=== PATIENT | female | born 1955 | race Caucasian/White ===

== ENCOUNTER 2024-09-22 18:28 | Emergency (ER) | payer MEDICARE, MEDICAID, SELFPAY ==
[2024-09-22 19:01] VITALS: BP 103/51; PULSE 77; RESP 20; O2SAT 97
--- NOTE | 2024-09-22 19:10 | XR_ITS ---
Examination: AP chest single view Technique: AP portable upright chest single view Exam date and time: September 22, 20241958 hrs. Indications: Onset vomiting today. Findings: Moderate elevation left hemidiaphragm Mild prominence cardiac contour Mild vascular congestion Atelectasis versus mild pneumonia left base Impression: Atelectasis versus mild pneumonia left base, clinical correlation advised
[2024-09-22] MEDS: SODIUM CHLORIDE 0.9% 250 ML 250 ML 999 ML IV (19:36)
[2024-09-22] MEDS: ONDANSETRON INJ 2 MG/ML INJ 2 ML 4 MG IV (19:37)
[2024-09-22 20:12] LABS: Basophils % (Auto) 0 % (0-2.5); Eosinophils # (Auto) 0.2 Thou/mm3 (0.0-0.5); Eosinophils % (Auto) 2 % (0-10); Hemoglobin 11.9 g/dL (12.0-16.0); Immature Granulocytes % (Auto) 1 % (0-0); Immature Granulocytes Auto 0.04 Thou/mm3 (0.00-0.00); Lymphocytes # (Auto) 1.5 Thou/mm3 (1.0-4.8); Lymphocytes % (Auto) 18 % (10-50); Mean Corpuscular HGB Conc 32.2 g/dl (31.0-37.0); Mean Corpuscular Hemoglobin 29.9 pg (25.0-35.0); Mean Corpuscular Volume 93 fL (80-100); Monocytes # (Auto) 0.8 Thou/mm3 (0.0-0.8); Monocytes % (Auto) 10 % (0-12); Neutrophils # (Auto) 5.6 Thou/mm3 (1.8-7.7); Neutrophils % (Auto) 69 % (37-80); Nucleated Red Blood Cell % 0 /100 WBC (0); RDW Standard Deviation 53.7 fL (36.4-46.3); Red Blood Count 3.98 Miln/mm3 (4.00-5.20); White Blood Count 8.1 Thou/mm3 (3.6-11.0)
[2024-09-22 20:16] LABS: Platelet Count 53 Thou/mm3 (140-440)
[2024-09-22 20:18] VITALS: BMI 29.2
[2024-09-22 20:32] LABS: Alanine Aminotransferase 26 U/L (10-49); Albumin, Serum 4.5 gm/dL (3.4-4.8); Albumin/Globulin Ratio 1.2 (1.2-2.2); Alkaline Phosphatase 180 U/L (46-116); Anion Gap 3 (7-16); Aspartate Amino Transferase 61 U/L (0-34); BUN/Creatinine Ratio 36 Ratio (12-20); Bilirubin,Total 0.2 mg/dL (0.3-1.2); Blood Urea Nitrogen 18 mg/dL (9-23); Calcium 9.5 mg/dL (8.3-10.6); Calcium (Corrected) 9.5 mg/dL (8.5-10.1); Carbon Dioxide 33.8 mMol/L (20.0-31.0); Chloride 100 mMol/L (98-107); Creatinine (Component) 0.5 mg/dL (0.6-1.3); Estimated Creatinine Clearance 88.8 mL/min (>60); Globulin 3.9 gm/dL (2.3-3.5); Glucose 100 mg/dL (74-106); Osmolality,Calculated 275 (275-295); Potassium 4.2 mMol/L (3.4-5.1); Sodium 137 mMol/L (136-145); Total Protein 8.4 gm/dL (5.7-8.2); Troponin I 0.023 ng/mL (0.0-0.045); eGFR > 60 See Note
[2024-09-22 20:44] LABS: Slide Review Platelets confirmed
[2024-09-22 20:56] LABS: B-Type Natriuretic Peptide 45 pg/mL (0-100)
[2024-09-22 21:23] LABS: Collection Type, Urine Voided
[2024-09-22 21:26] VITALS: BP 97/55; PULSE 76; RESP 17; TEMP 36.8; O2SAT 100
[2024-09-22 21:54] LABS: Bacteria,Urine Rare; Bilirubin,Urine Negative (Negative); Blood,Urine Negative (Negative); Clarity,Urine Turbid (Clear/Hazy); Color,Urine Lt-Yellow (Lt Yel-Yel); Glucose, Urine Negative (Negative); Ketones,Urine Negative (Negative); Leukocyte Esterase,Urine Positive (Negative); Nitrite,Urine Positive (Negative); PH,Urine 5.5 (5.0-7.0); Protein,Urine Negative (Neg - Trace); RBC,Urine 1 /hpf (0-3); Specific Gravity,Urine 1.007 (1.001-1.035); Squamous Epithelial Cell,Urine < 1 /hpf (0-5); Urobilinogen,Urine Negative mg/dL (0.0-1.0); WBC,Urine 6 /hpf (0-5)
[2024-09-22 23:37] VITALS: BP 105/70; PULSE 80; RESP 18; O2SAT 100
--- NOTE | 2024-09-22 23:44 | EDNOTE_ITS ---
ED Seizures RME/HPI General Chief Complaint: Seizure Stated Complaint: NAUSEA AND VOMITING Time Seen by Provider: 09/22/24 18:57 Arrival date/time: 09/22/24 18:28 Limitations: no limitations RME / HPI RME / HPI Narrative: Dr. Salazar's Main ED Evaluation: 69-year-old female with known seizure disorder BIBA from [facility] coming in with nausea and possible seizure history taken by EMS. Per EMS, patient had a seizure that lasted 1 minute. EMS endorsed the patient having N/V and administered Zofran en route. No further history reported at this time. No known allergies. Related Data Home Medications ?Medication ?Instructions ?Recorded ?Confirmed alendronate 70 mg tablet 70 mg PO QWEEK 06/11/20 07/21/22 ascorbic acid (vitamin C) 500 mg 500 mg PO QDAY 06/11/20 07/21/22 tablet (Vitamin C) docusate sodium 250 mg capsule 250 mg PO BID 06/11/20 07/21/22 furosemide 40 mg tablet 40 mg PO QDAY 06/11/20 07/21/22 potassium chloride 10 mEq 10 meq PO BID 06/11/20 07/21/22 tablet,extended release hydroxyzine HCl 50 mg tablet 50 mg PO QPM 03/10/21 07/21/22 loratadine 10 mg tablet 10 mg PO QDAY 03/10/21 07/21/22 multivitamin with iron-mineral 1 tab PO QDAY 03/10/21 07/21/22 pantoprazole 40 mg tablet,delayed 40 mg PO QDAY 03/10/21 07/21/22 release (Protonix) acetaminophen 325 mg tablet 650 mg PO Q6H PRN Pain 08/21/21 07/21/22 magnesium hydroxide 400 mg/5 mL 30 ml PO Q72H 08/21/21 07/21/22 oral suspension (Milk of Magnesia) primidone 50 mg tablet 200 mg PO BID 08/21/21 07/21/22 levothyroxine 300 mcg tablet 300 mcg PO QDAY 07/21/22 07/21/22 Previous Rx's ?Medication ?Instructions ?Recorded apixaban 5 mg tablet (Eliquis) 10 mg (2 x 5 mg) PO BID #28 tabs 07/17/22 Allergies Allergy/AdvReac Type Severity Reaction Status Date / Time No Known Allergies Allergy Verified 06/12/22 11:15 Review of Systems Review of Systems Systems Reviewed: All systems reviewed, normal except as documented Past Medical History Past Medical History NEUROLOGIC: Positive Neurological Disorders, Seizures and Traumatic Brain Injury CARDIAC: Positive Myocardial Infarction and Hypertension; Negative Cardiac Disorders or Congestive Heart Failure RESPIRATORY: Positive Pneumonia; Negative Chronic Obstructive Pulmonary Disease (COPD) or Asthma GASTROINTESTINAL: Positive Gastrointestinal Disorders, Gastrointestinal Bleed, Hiatal Hernia and Gastroesophageal Reflux Disease GENITOURINARY: Negative Genitourinary Disorders or Renal Disease MUSCULOSKELETAL: Positive Musculoskeletal Disorders and Osteoporosis ENDOCRINE: Positive Endocrine Disorders and Hypothyroidism; Negative Diabetes Mellitus Type 1 or Diabetes Mellitus Type 2 HEMATOLOGIC: Positive Anemia; Negative Blood Disorders or Sickle Cell Disease OTHER HISTORY: Negative Shingles, Falls, Blood Transfusions or Blood Transfusion Reaction Social History SMOKING STATUS: Never smoker ED Exam Narrative Physical exam: Patient sitting on the stretcher, repeating her words at baseline. General Limitations: Present no limitations General appearance: Present alert; Absent appears intoxicated, anxious, lethargic or obtunded Head Head exam: Present other (Losing much of her hair) Eye Eye exam: Present normal appearance; Absent conjunctival injection ENT ENT exam: Present normal exam, normal oropharynx and mucous membranes moist Neck Neck exam: Present normal inspection, full ROM and trachea midline Chest Chest inspection: Present normal inspection and symmetric chest wall rise Respiratory Respiratory exam: Present normal lung sounds bilaterally; Absent respiratory distress or wheezes Cardiovascular Cardiovascular exam: Present regular rate, normal rhythm and normal heart sounds Abdominal Exam Abdominal exam: Present soft and normal bowel sounds; Absent distention Extremities Exam Extremities exam: Present other (Bilateral upper extremity contractures of the hand.); Absent pedal edema Back Exam Back exam: Present normal inspection and full ROM Neurological Exam Neurological exam: Present other (At baseline) Psychiatric Psychiatric exam: Present normal affect and normal mood Skin Skin exam: Present warm and dry; Absent rash Course Course Course Narrative: CXR is ordered to r/o aspiration pneumonia. Quality Measures none Orders Category Date Time Status IV [Insert IV] STAT Care 09/22/24 19:[address] head/brain wo con Stat Exams 09/22/24 23:45 Taken CXRP [XR chest 1V portable] Stat Exams 09/22/24 19:10 Completed BNP [B-Type Natriuretic Peptide] Stat Lab 09/22/24 19:47 Completed CBC Stat Lab 09/22/24 19:47 Completed CMP [Comprehensive Metabolic Panel] Stat Lab 09/22/24 19:47 Completed Troponin I Stat Lab 09/22/24 19:47 Completed Urinalysis Stat Lab 09/22/24 21:15 Completed Ondansetron Inj [Zofran Inj] Med 09/22/24 19:29 Discontinued 4 mg IV X1 ONE Sodium Chloride 0.9% 250 ml [Ns] 250 ml Med 09/22/24 19:30 Discontinued IV 999 mls/hr cefTRIAXone [Rocephin] 1,000 mg Med 09/23/24 02:36 Active Sodium Chloride 0.9% (P) [Ns 0.9% (P)] 50 ml IV X1 Vital Signs Vital signs: Vital Signs Pulse Rate 77 09/22/24 19:01 Respiratory Rate 20 09/22/24 19:01 Blood Pressure 103/51 L 09/22/24 19:01 Pulse Oximetry (%) 97 09/22/24 19:01 Oxygen Delivery Method Nasal Cannula 09/22/24 19:01 Oxygen Flow Rate 6 09/22/24 19:01 Seizure MDM Narrative MDM Narrative:: Differential diagnosis includes electrolyte abnormality, bleed, UTI, pneumonia, dehydration. Patient is tolerating p.o. in emergency department. Urine shows that she has UTI and she is treated with ceftriaxone. At this time the patient is not febrile we will discharge patient home. Patient data External records reviewed:: [facility] previous records (Per chart review, patient was seen here on 01/20/23 for a choking episode.) Clinical information provided by:: EMS Social determinants that could affect healthcare access:: none Patient has the following chronic illnesses:: TBI, seizures, GERD, HTN, hypothyroidism How is presenting disease/condition affected by chronic disease/condition?: caused by Evaluation data The following diagnostics were reviewed and interpreted by me:: lab results and radiology exam(s) Lab and/or radiology exams considered but not ordered:: none Interpretation Summary: CBC is normal, AST and Alkaline Phosphatase are slightly elevated, troponin is normal, UA shows positive nitrites, positive leukocyte esterase, and rare bacteria, according to my interpretation. ------ I have personally reviewed the radiology data and agree with the radiologist's interpretation below: [facility] Report Signed Patient: TANIA HALL. Record#: [id number] Birthdate: 1955 Age/Sex: 69 / F Location: [facility] Attending Dr: Ordering Physician: Juli Liang MD Date of Service: 09/22/24 Procedure(s): XR chest 1V portable Accession Number(s): [id number] cc: Gabe Almeida MD; Juli Liang MD~ Examination: AP chest single view Technique: AP portable upright chest single view Exam date and time: September 22, 20241958 hrs. Indications: Onset vomiting today. Findings: Moderate elevation left hemidiaphragm Mild prominence cardiac contour Mild vascular congestion Atelectasis versus mild pneumonia left base Impression: Atelectasis versus mild pneumonia left base, clinical correlation advised Dictated By: Gabe Almeida MD Signed By: <Electronically signed by Gabe Almeida MD in OV> 09/22/242020 ------ [facility] Preliminary Report Draft Patient: TANIA HALL Record#: [id number] Birthdate: 1955 Age/Sex: 69 / F Location: [facility] Attending Dr: Ordering Physician: Date of Service: Procedure(s): Accession Number(s): cc: ~ CT scan of the head without intravenous contrast (axial sections with sagittal and coronal reformats). September 23, 2024 0112 hours Clinical History: 69-year-old with history of seizure disorder. Comparison: Compared with the prior study dated August 23, 2021 Findings: There is no evidence of intracranial hemorrhage, mass effect or midline shift. There are mild periventricular white matter hypodensities, suggestive of chronic small vessel ischemia. There is prominence of the ventricles, sulci and basal cisterns, indicating moderate volume loss. There is atheromatous calcification of the intracranial arteries. There are stable post-surgical changes of the left parietal region. The calvarium otherwise is intact. The mastoid air cells and the visualized paranasal sinuses are clear. Impression: No evidence of intracranial hemorrhage, midline shift or calvarial fracture. Chronic small vessel ischemia and mild volume loss. No significant interval change. Other findings as described above. Report Electronically Signed By: Lam Delgadillo 09/23/2024 2:30:01 AM [EST] Medications / Prescriptions Medications or Prescriptions considered but not ordered:: none Medication administrations:: Medication Administration History Ceftriaxone Sodium 1,000 mg/ (Sodium Chloride) 50 mls @ 100 mls/hr IV X1 ONE Stop: 09/23/24 03:05 Last Admin: 09/23/24 02:45 Dose: 100 mls/hr Documented By: RACHEL Discontinued Medications Sodium Chloride (Ns) 250 mls @ 999 mls/hr IV .Q16M ONE Stop: 09/22/24 19:45 Last Infusion: 09/22/24 20:18 Dose: Infused Documented By: Admin: 09/22/24 19:36 Dose: 999 mls/hr Documented By: RACHEL Ondansetron HCl (Ondansetron Inj 2 Mg/Ml Inj 2 Ml) 4 mg IV X1 ONE; Protocol Stop: 09/22/24 19:30 Last Admin: 09/22/24 19:37 Dose: 4 mg Documented By: RACHEL see above Consultations Consultation(s) initiated? (list below): No Diagnosis Seizure Differential Diagnosis: other (electrolyte abnormality, ICH, UTI, pneumonia, dehydration) Most likely diagnosis given after review of the tests above:: see below Admission Indicated Admission indicated?: not indicated Admission Request Was there a request for admission?: No Disposition Plan Disposition Plan: Discharge Discharge Attestation Discharge Attestation: The patient and all family members were given an opportunity to ask questions and understood the discharge instructions. Discharge instructions specifically effects, indications for sooner follow up or return to the emergency department, and the expected course of current diagnosis. Patient condition: Stable Discharge Plan Plan Patient Disposition: HOME (Self Care) Patient condition on transfer: Stable Prescriptions/Referrals Prescriptions/Med Rec: No Action primidone 50 mg tablet 200 mg PO BID acetaminophen 325 mg Tablet 650 mg PO Q6H PRN (Reason: Pain) Rx Instructions: for mild pain magnesium hydroxide [Milk of Magnesia] 400 mg/5 mL Suspension 30 ml PO Q72H Rx Instructions: for constipation furosemide 40 mg Tablet 40 mg PO QDAY alendronate 70 mg Tablet 70 mg PO QWEEK Rx Instructions: saturday potassium chloride 10 mEq Tablet Extended Release 10 meq PO BID ascorbic acid (vitamin C) [Vitamin C] 500 mg Tablet 500 mg PO QDAY docusate sodium 250 mg Capsule 250 mg PO BID Rx Instructions: for constipation hydroxyzine HCl 50 mg Tablet 50 mg PO QPM loratadine 10 mg Tablet 10 mg PO QDAY Rx Instructions: for allergies multivitamin with iron-mineral Tablet 1 tab PO QDAY pantoprazole [Protonix] 40 mg Tablet,Delayed Release (Dr/Ec) 40 mg PO QDAY levothyroxine 300 mcg Tablet 300 mcg PO QDAY Eliquis 5 mg tablet 10 mg PO BID Qty: 28 0RF Referrals: Tony Harding MD [Primary Care Provider] - In 1 week Problem List Clinical Impression: Acute UTI, History of seizure disorder Patient/Caregiver Discharge Instructions Education Materials: ED CYSTITIS Female Adult Additional Instructions: Please continue the medications as prescribed by your doctor. Please return to the emergency department for any worsening symptoms, or any other concerns. Print Language: Yakut Stand Alone Forms: Rosalia Award Info., Patient Portal Info Letter
--- NOTE | 2024-09-22 23:45 | XR_ITS ---
Examination: CT brain head without contrast. 2-D sagittal coronal reconstructions Date and time of exam:September 23, 2024 0112 hrs. Indications: Onset lethargy altered mental status today CTDI: vol (mGy):45.71 DLP: (mGycm):909 Technique: Multiple CT axial sections of the brain have been obtained, 5 mm slice thickness. Contrast has not been administered. 2-D sagittal, coronal reconstructions have been obtained Low dose protocols were performed. One or more of the following dose reduction techniques were used; automated exposure control, adjustment of the mA and/or KV according to patient size, use of iterative reconstruction technique. Findings: No significant ventricular enlargement. Intra-axial or extra-axial hemorrhage density is not seen. No mass effect or midline shift Basal cisterns are not remarkable. Fourth ventricle is midline. Left craniotomy defects Impression: Negative for acute hemorrhage, mass effect or midline shift His symptoms persist, consider brain MRI follow-up
[2024-09-23 01:00] VITALS: BP 113/78; PULSE 72; RESP 22; TEMP 37.1; O2SAT 100
--- NOTE | 2024-09-23 02:31 | PRELIM_ITS ---
CT scan of the head without intravenous contrast (axial sections with sagittal and coronal reformats) . September 23, 2024 0112 hoursClinical History: 69-year-old with history of seizure disorder.Comparis on: Compared with the prior study dated August 23, 2021Findings:There is no evidence of intracranial hemorrhage, mass effect or midline shift. There are mild periventricular white matter hypodensities, suggestive of chronic small vessel ischemia. There is prominence of the ventricles, sulci and basal cisterns, indicating moderate volume loss. There is atheromatous calcification of the intracranial ar teries. There are stable post-surgical changes of the left parietal region. The calvarium otherwise i s intact. The mastoid air cells and the visualized paranasal sinuses are clear.Impression:No evidence of intracranial hemorrhage, midline shift or calvarial fracture. Chronic small vessel ischemia and m ild volume loss. No significant interval change. Other findings as described above. Report Alexandria simmons Signed By: Lam Delgadillo 09/23/2024 2:30:01 AM [EST]
[2024-09-23] MEDS: cefTRIAXone 1,000 MG in SODIUM CHLORIDE 0.9% (P) 50 ML 100 MG IV (02:45)
[2024-09-23 03:51] VITALS: BP 110/67; PULSE 78; RESP 18; TEMP 36.7; O2SAT 98
== END 2024-09-23 03:52 | disposition home or self-care (01) ==
PROVIDERS: Emergency Provider Emergency Medicine; PCP Family Medicine
DX: N39.0 Urinary tract infection, site not specified (principal); E03.9 Hypothyroidism, unspecified; K21.9 Gastro-esophageal reflux disease without esophagitis; I10 Essential (primary) hypertension; R56.9 Unspecified convulsions
CPT/HCPCS: 36415; 70450; 71045; 80053; 81001; 83880; 84484; 85025; 96361; 96365; 96375; 99284; J0696; J2405; J7050

== ENCOUNTER 2025-03-28 06:33 | Emergency (ER) | payer MEDICARE, MEDICAID, SELFPAY ==
[2025-03-28 06:36] VITALS: BP 132/79; PULSE 78; RESP 18; TEMP 36.9; O2SAT 96
[2025-03-28 06:54] VITALS: PULSE 72; RESP 18; O2SAT 97
--- NOTE | 2025-03-28 07:19 | EKG_ITS ---
[facility] Test Date: 2025-03-28 Pat Name: TANIA HALL Department: Room: - Gender: Female Administrative Support Associate: : 1955 Requested By: Gustavo Contreras Order Number: [id number] Reading MD: Gustavo Contreras Measurements Intervals [place] Rate: 77 P: ND: QRS: 73 QRSD: 78 T: 60 QT: 353 QTc: 401 Interpretive Statements ATRIAL FIBRILLATION NONSPECIFIC T-WAVE ABNORMALITY ABNORMAL RHYTHM ECG Compared to ECG 07/20/2022 16:16:08 Sinus rhythm no longer present T-wave abnormality still present /store/S0/[id number].pdf
--- NOTE | 2025-03-28 07:20 | PD.EDAMS ---
Altered Mental Status RME/HPI General Chief Complaint: Altered Mental Status Stated Complaint: AMS Time Seen by Provider: 03/28/25 07:08 Arrival date/time: 03/28/25 06:33 Limitations: no limitations RME / HPI RME / HPI narrative: 69 year old female with history of developmental delay, seizures, hypertension, hypothyroidism, gastritis, anemia, and left hip fracture s/p tronchateric fixation and implant of the left hip (2021) presents to the ED BIBA from [facility] for evaluation of altered mental status. Per medics, [facility] staff reported patient was found to be confused and altered this morning during morning rounds. State when they arrived patient was GCS of 13. However, noted en route mentation had improved and on arrival to ED is GCS of 14, which is her baseline. Unclear whether patient had a seizure and was postictal. Related Data Home Medications ?Medication ?Instructions ?Recorded ?Confirmed alendronate 70 mg tablet 70 mg PO QWEEK 06/11/20 07/21/22 ascorbic acid (vitamin C) 500 mg 500 mg PO QDAY 06/11/20 07/21/22 tablet (Vitamin C) docusate sodium 250 mg capsule 250 mg PO BID 06/11/20 07/21/22 furosemide 40 mg tablet 40 mg PO QDAY 06/11/20 07/21/22 potassium chloride 10 mEq 10 meq PO BID 06/11/20 07/21/22 tablet,extended release hydroxyzine HCl 50 mg tablet 50 mg PO QPM 03/10/21 07/21/22 loratadine 10 mg tablet 10 mg PO QDAY 03/10/21 07/21/22 multivitamin with iron-mineral 1 tab PO QDAY 03/10/21 07/21/22 pantoprazole 40 mg tablet,delayed 40 mg PO QDAY 03/10/21 07/21/22 release (Protonix) acetaminophen 325 mg tablet 650 mg PO Q6H PRN Pain 08/21/21 07/21/22 magnesium hydroxide 400 mg/5 mL 30 ml PO Q72H 08/21/21 07/21/22 oral suspension (Milk of Magnesia) primidone 50 mg tablet 200 mg PO BID 08/21/21 07/21/22 levothyroxine 300 mcg tablet 300 mcg PO QDAY 07/21/22 07/21/22 Previous Rx's ?Medication ?Instructions ?Recorded apixaban 5 mg tablet (Eliquis) 10 mg (2 x 5 mg) PO BID #28 tabs 07/17/22 levofloxacin 500 mg tablet 500 mg PO Q24H 7 days #10 tabs 03/28/25 Allergies Allergy/AdvReac Type Severity Reaction Status Date / Time No Known Allergies Allergy Verified 03/28/25 06:53 Review of Systems Review of Systems ROS Unobtainable: unobtainable due to mental status Past Medical History Past Medical History NEUROLOGIC: Positive Neurological Disorders, Seizures and Traumatic Brain Injury CARDIAC: Positive Myocardial Infarction and Hypertension RESPIRATORY: Positive Pneumonia GASTROINTESTINAL: Positive Gastrointestinal Disorders, Gastrointestinal Bleed, Hiatal Hernia and Gastroesophageal Reflux Disease MUSCULOSKELETAL: Positive Musculoskeletal Disorders and Osteoporosis ENDOCRINE: Positive Endocrine Disorders and Hypothyroidism HEMATOLOGIC: Positive Anemia Social History SMOKING STATUS: Never smoker ED Exam General Limitations: Present no limitations General appearance: Present alert and other (Nonverbal) Head Head exam: Present atraumatic and normocephalic Eye Eye exam: Present normal appearance, PERRL and EOMI ENT ENT exam: Present normal exam, normal oropharynx and mucous membranes moist Neck Neck exam: Present normal inspection, full ROM and trachea midline Chest Chest inspection: Present normal inspection and symmetric chest wall rise Respiratory Respiratory exam: Present normal lung sounds bilaterally Cardiovascular Cardiovascular exam: Present regular rate, normal rhythm and normal heart sounds Abdominal Exam Abdominal exam: Present soft and normal bowel sounds Extremities Exam Extremities exam: Present normal inspection and full ROM; Absent pedal edema Back Exam Back exam: Present normal inspection and full ROM Neurological Exam Neurological exam: Present other (Awake, alert, oriented x1, no facial droop, inattention, moved all extremities, not able to assess further due to nonresponsiveness ) Psychiatric Psychiatric exam: Present normal affect and normal mood Skin Skin exam: Present warm, dry, intact and normal color Course Quality Measures none Orders Category Date Time Status Bar Tender NOW Care 03/28/25 07:19 Active Continuous Pulse Oximetry NOW Care 03/28/25 07:19 Completed EKG (ED ONLY) *Do not use* NOW Care 03/28/25 07:19 Completed Insert IV NOW Care 03/28/25 07:[address] head/brain wo con Stat Exams 03/28/25 07:26 Completed EKG (ED Only) Stat Exams 03/28/25 07:19 Ordered XR chest 1V portable Stat Exams 03/28/25 07:19 Completed CBC Stat Lab 03/28/25 07:52 Completed Comprehensive Metabolic Panel Stat Lab 03/28/25 07:52 Completed Lactic Acid [Lactate (Lactic Acid)] Stat Lab 03/28/25 07:52 Completed Partial Thromboplastin Time Stat Lab 03/28/25 07:52 Completed Prothrombin Time with INR Stat Lab 03/28/25 07:52 Completed Troponin I Stat Lab 03/28/25 07:52 Completed Urinalysis Routine Lab 03/28/25 10:50 Received Levofloxacin/D5w 500 mg Ivpb [Levaquin Ivpb] Med 03/28/25 11:19 Active 500 mg in 100 ml IV X1 Sodium Chloride 0.9% 1000 ml [Ns] 1,000 ml Med 03/28/25 07:19 Discontinued IV 250 mls/hr Oxygen Delivery NOW RT 03/28/25 07:19 Active Vital Signs Vital signs: Vital Signs Temperature 98.5 F 03/28/25 06:36 Pulse Rate 78 03/28/25 06:36 Respiratory Rate 18 03/28/25 06:36 Blood Pressure 132/79 H 03/28/25 06:36 Pulse Oximetry (%) 96 03/28/25 06:36 Oxygen Delivery Method Nasal Cannula 03/28/25 06:36 Oxygen Flow Rate 2 03/28/25 06:36 Pulse ox is 96% on 2L nasal cannula which is adequate. Altered Mental Status MDM Narrative MDM Narrative:: I, Jennifer Pacheco, am scribing for and in the presence of Dr. Diggs. The patient presented to the ED for confusion and altered mental status. At this time I don't think the patient is having an acute stroke and presentation is most likely seizures vs encephalopathy (infectious or metabolic). Patient data External records reviewed:: [facility] previous records (I reviewed admission from 07/18/2022 through 07/23/2022), EMS form and [facility] records (I reviewed pmhx and medication list from [facility] ) Clinical information provided by:: EMS Social determinants that could affect healthcare access:: housing (SNF resident ) Patient has the following chronic illnesses:: Developmental delay, seizures, hypertension, hypothyroidism, gastritis, anemia, and left hip fracture s/p tronchateric fixation and implant of the left hip (2021) How is presenting disease/condition affected by chronic disease/condition?: exacerbated by Evaluation data The following diagnostics were reviewed and interpreted by me:: lab results, radiology exam(s) and EKG tracing(s) (EKG 03/28/2025 @ 08:09 AM. Sinus rhythm with short ID interval, rate 73, ID 116ms, QRS 81ms, QT/QTc 368/394ms, P-R-T 36-74-90. ) Lab and/or radiology exams considered but not ordered:: None Interpretation Summary: Ordering Physician: Gustavo Diggs MD Date of Service: 03/28/25 Procedure(s): XR chest 1V portable Accession Number(s): [id number] cc: Gustavo Diggs MD; Gabe Almeida MD~ Examination: AP chest single view TECHNIQUE: AP portable semiupright chest single view Date and time: March,, 0738 hours INDICATIONS: Coughing today. FINDINGS: Moderate elevation left hemidiaphragm Atelectasis and/or pneumonia left base Right lung clear Ectatic thoracic aorta IMPRESSION: Atelectasis and/or pneumonia left base, clinical correlation is advised Dictated By: Gabe Almeida MD Signed By: <Electronically signed by Gabe Almeida MD in OV>03/28/25 0807 Ordering Physician: Gustavo Diggs MD Date of Service: 03/28/25 Procedure(s): CT head/brain wo con Accession Number(s): [id number] cc: Gustavo Diggs MD; Gabe Almeida MD; Tony Harding MD~ Examination: CT brain head without contrast. 2-D sagittal coronal reconstructions Date and time of exam:March 28, 2025, 0841 hrs. Indications: Altered mental status today CTDI: vol (mGy):46.5 DLP: (mGycm):912 Technique: Multiple CT axial sections of the brain have been obtained, 5 mm slice thickness. Contrast has not been administered. 2-D sagittal, coronal reconstructions have been obtained Low dose protocols were performed. One or more of the following dose reduction techniques were used; automated exposure control, adjustment of the mA and/or KV according to patient size, use of iterative reconstruction technique. Findings: No significant ventricular enlargement. Intra-axial or extra-axial hemorrhage density is not seen. No mass effect or midline shift Basal cisterns are not remarkable. Fourth ventricle is midline. Left craniotomy defects Impression: Negative for acute hemorrhage, mass effect or midline shift Advise clinical correlation and follow-up accordingly Dictated By: Gabe Almeida MD Signed By: <Electronically signed by Gabe Almeida MD in OV>03/28/25 09 Medications / Prescriptions Medications or Prescriptions considered but not ordered:: None Medication administrations:: Medication Administration History Levofloxacin/Dextrose (Levaquin Ivpb) 500 mg in 100 mls @ 100 mls/hr IV X1 ONE Stop: 03/28/25 12:18 Last Admin: 03/28/25 11:30 Dose: 100 mls/hr Documented By: DO Discontinued Medications Sodium Chloride (Ns) 1,000 mls @ 250 mls/hr IV .Q4H ONE Stop: 03/28/25 11:18 Last Admin: 03/28/25 09:26 Dose: 250 mls/hr Documented By: DO See above Consultations Consultation(s) initiated? (list below): No Diagnosis Differential diagnosis altered mental status: altered mental status, hypoglycemia, subarachnoid hemorrhage, sepsis and other (Seizure, postictal phase ) Most likely diagnosis given after review of the tests above:: Atelectasis, left lung base AMS Hypernatremia Admission Indicated Admission indicated?: not indicated Admission Request Was there a request for admission?: No Disposition Plan Disposition Plan: Discharge (to SNF ) Discharge Attestation Discharge Attestation: The patient and all family members were given an opportunity to ask questions and understood the discharge instructions. Discharge instructions specifically effects, indications for sooner follow up or return to the emergency department, and the expected course of current diagnosis. Patient condition: Stable Discharge Plan Plan Patient Disposition: Xfer Skilled Nsg Fac (SNF) Prescriptions/Referrals Prescriptions/Med Rec: New levofloxacin 500 mg tablet 500 mg PO Q24H 7 Days Qty: 10 0RF No Action primidone 50 mg tablet 200 mg PO BID acetaminophen 325 mg Tablet 650 mg PO Q6H PRN (Reason: Pain) Rx Instructions: for mild pain magnesium hydroxide [Milk of Magnesia] 400 mg/5 mL Suspension 30 ml PO Q72H Rx Instructions: for constipation furosemide 40 mg Tablet 40 mg PO QDAY alendronate 70 mg Tablet 70 mg PO QWEEK Rx Instructions: saturday potassium chloride 10 mEq Tablet Extended Release 10 meq PO BID ascorbic acid (vitamin C) [Vitamin C] 500 mg Tablet 500 mg PO QDAY docusate sodium 250 mg Capsule 250 mg PO BID Rx Instructions: for constipation hydroxyzine HCl 50 mg Tablet 50 mg PO QPM loratadine 10 mg Tablet 10 mg PO QDAY Rx Instructions: for allergies multivitamin with iron-mineral Tablet 1 tab PO QDAY pantoprazole [Protonix] 40 mg Tablet,Delayed Release (Dr/Ec) 40 mg PO QDAY levothyroxine 300 mcg Tablet 300 mcg PO QDAY Eliquis 5 mg tablet 10 mg PO BID Qty: 28 0RF Referrals: Tony Harding MD [Primary Care Provider] - In 1 week Problem List Clinical Impression: Atelectasis of left lung, AMS (altered mental status), Hypernatremia Patient/Caregiver Discharge Instructions Education Materials: Hypernatremia Dc, ED Atelectasis, ED Dehydration (Adult) Additional Instructions: I encourage you drink more fluids. Follow-up with your primary care doctor in 3 to 5 days for recheck. You can return to the emergency department sooner if symptoms worsen or if you notice any new, concerning issues. Print Language: Tajik Stand Alone Forms: [facility] Award Info., Patient Portal Info Letter
--- NOTE | 2025-03-28 07:26 | XR_ITS ---
Examination: CT brain head without contrast. 2-D sagittal coronal reconstructions Date and time of exam:March 28, 2025, 0841 hrs. Indications: Altered mental status today CTDI: vol (mGy):46.5 DLP: (mGycm):912 Technique: Multiple CT axial sections of the brain have been obtained, 5 mm slice thickness. Contrast has not been administered. 2-D sagittal, coronal reconstructions have been obtained Low dose protocols were performed. One or more of the following dose reduction techniques were used; automated exposure control, adjustment of the mA and/or KV according to patient size, use of iterative reconstruction technique. Findings: No significant ventricular enlargement. Intra-axial or extra-axial hemorrhage density is not seen. No mass effect or midline shift Basal cisterns are not remarkable. Fourth ventricle is midline. Left craniotomy defects Impression: Negative for acute hemorrhage, mass effect or midline shift Advise clinical correlation and follow-up accordingly
[2025-03-28 07:30] VITALS: PULSE 72; PULSE 75; O2SAT 99
--- NOTE | 2025-03-28 08:37 | PC.NURSE ---
Patient KEMAR from [facility]. Patient's sister Abril called to get update on patient . Per sister patient is profoundly developmentally delayed . Per sister she responds but is normally difficult to understand at baseline; patient is wheelchair/bedbound normally. Informed sister that patient just got back to room from CT scan. Patient has had labs drawn and waiting for all results for better update. No further questions.
[2025-03-28 08:47] LABS: Basophils % (Auto) 1 % (0-2.5); Eosinophils # (Auto) 0.1 Thou/mm3 (0.0-0.5); Eosinophils % (Auto) 1 % (0-10); Hematocrit 36.6 % (36.0-46.0); Hemoglobin 12.1 g/dL (12.0-16.0); Immature Granulocytes % (Auto) 0 % (0-0); Immature Granulocytes Auto 0.01 Thou/mm3 (0.00-0.00); Lymphocytes # (Auto) 1.3 Thou/mm3 (1.0-4.8); Lymphocytes % (Auto) 20 % (10-50); Mean Corpuscular HGB Conc 33.1 g/dl (31.0-37.0); Mean Corpuscular Hemoglobin 31.3 pg (25.0-35.0); Mean Corpuscular Volume 95 fL (80-100); Monocytes # (Auto) 0.5 Thou/mm3 (0.0-0.8); Monocytes % (Auto) 8 % (0-12); Neutrophils # (Auto) 4.4 Thou/mm3 (1.8-7.7); Neutrophils % (Auto) 69 % (37-80); Nucleated Red Blood Cell % 0 /100 WBC (0); Platelet Count 99 Thou/mm3 (140-440); RDW Standard Deviation 59.2 fL (36.4-46.3); Red Blood Count 3.87 Miln/mm3 (4.00-5.20); White Blood Count 6.3 Thou/mm3 (3.6-11.0)
[2025-03-28 08:51] VITALS: BP 122/75; PULSE 76; RESP 18; TEMP 36.7; O2SAT 100
[2025-03-28 09:16] LABS: Alanine Aminotransferase 13 U/L (10-49); Albumin/Globulin Ratio 1.2 (1.2-2.2); Alkaline Phosphatase 128 U/L (46-116); Anion Gap 8 (7-16); BUN/Creatinine Ratio 38 Ratio (12-20); Bilirubin,Total 0.2 mg/dL (0.3-1.2); Blood Urea Nitrogen 15 mg/dL (9-23); Calcium 8.7 mg/dL (8.3-10.6); Calcium (Corrected) 8.7 mg/dL (8.5-10.1); Carbon Dioxide 35.6 mMol/L (20.0-31.0); Chloride 104 mMol/L (98-107); Creatinine (Component) 0.4 mg/dL (0.6-1.3); Estimated Creatinine Clearance 152.4 mL/min (>60); Globulin 3.3 gm/dL (2.3-3.5); Glucose 106 mg/dL (74-106); INR 1.1 (0.9-1.3); Osmolality,Calculated 295 (275-295); Potassium 3.5 mMol/L (3.4-5.1); Prothrombin Time 11.5 Seconds (9.0-12.2); Sodium 148 mMol/L (136-145); Total Protein 7.3 gm/dL (5.7-8.2); Troponin I 0.026 ng/mL (0.0-0.045); eGFR > 60 See Note
[2025-03-28] MEDS: SODIUM CHLORIDE 0.9% 1000 ML 1,000 ML 250 ML IV (09:26)
[2025-03-28 11:04] VITALS: BP 118/67; PULSE 76; RESP 18; TEMP 36.6; O2SAT 100
[2025-03-28 11:08] LABS: Collection Type, Urine Catheter
[2025-03-28] MEDS: LEVOFLOXACIN/D5W 500 MG IVPB 500 MG/100 ML BAG 100 MG IV (11:30)
[2025-03-28 11:51] LABS: Bacteria,Urine 3+; Bilirubin,Urine Negative (Negative); Blood,Urine 2+ (Negative); Clarity,Urine Turbid (Clear/Hazy); Color,Urine Yellow (Lt Yel-Yel); Glucose, Urine Negative (Negative); Ketones,Urine Negative (Negative); Leukocyte Esterase,Urine Positive (Negative); Nitrite,Urine Positive (Negative); PH,Urine 5.5 (5.0-7.0); Protein,Urine Trace (Neg - Trace); RBC,Urine 24 /hpf (0-3); Specific Gravity,Urine 1.024 (1.001-1.035); Squamous Epithelial Cell,Urine 11 /hpf (0-5); Urobilinogen,Urine Negative mg/dL (0.0-1.0); WBC,Urine 8 /hpf (0-5)
--- NOTE | 2025-03-28 12:28 | PC.CC ---
Maria T GUTIERRES was consulted by TAMEKA Pat to arrange transportation for the patient back to [facility]. CRESENCIOW made telephone contact with [place] [phone].
--- NOTE | 2025-03-28 12:51 | PC.NURSE ---
Report called to [facility]. Spoke to Glenis SIMON at [facility]. Notified PULLMAN CONDUCTOR of ED findings. No further questions. Patient vitals stable. Patient back to baseline, responding to verbal stimuli. Patient received antibiotics and fluids and will be discharged with PO Antibiotics. roll scale worker made aware for transport needs.
[2025-03-28 12:57] VITALS: BP 115/67; PULSE 74; RESP 20; TEMP 36.9; O2SAT 95
== END 2025-03-28 14:46 | disposition skilled nursing facility (03) ==
PROVIDERS: Emergency Provider Family Medicine; PCP Family Medicine
DX: J98.11 Atelectasis (principal); R41.82 Altered mental status, unspecified; E87.0 Hyperosmolality and hypernatremia; R94.31 Abnormal electrocardiogram [ECG] [EKG]
CPT/HCPCS: 36415; 70450; 71045; 80053; 81001; 83605; 84484; 85025; 85610; 85730; 93005; 96361; 96365; 99284; J1956; J7030

== ENCOUNTER → 2025-07-21 | Outpatient (CLI) | payer MEDICARE, MEDICAID, SELFPAY ==
--- NOTE | 2025-07-21 09:30 | ECHO_ITS ---
Transthoracic Echo Report Ht (in): 61 Wt (lb): 148 Exam Location: Echo Lab Status: Outpatient Senior Environmental Engineer: Kimmie Catalan Indications: Procedure Performed: BP: 95 / 60 HR: 77 MEASUREMENTS (Male / Female) Normal Values 2D ECHO LV Diastolic Diameter PLAX 3.8 cm 4.2 - 5.9 / 3.9 - 5.3 cm LV Systolic Diameter PLAX 2.4 cm IVS Diastolic Thickness 0.8 cm 0.6 - 1.0 / 0.6 - 0.9 cm LVPW Diastolic Thickness 1.0 cm 0.6 - 1.0 / 0.6 - 0.9 cm LV Relative Wall Thickness 0.5 DOPPLER AV Peak Velocity 144.0 cm/s AV Peak Gradient 8.3 mmHg AV Mean Gradient 5.0 mmHg AV Velocity Time Integral 31.6 cm LVOT Peak Velocity 86.5 cm/s LVOT Peak Gradient 3.0 mmHg LVOT Velocity Time Integral 16.1 cm MV Area PHT 3.4 cm? Mitral E Point Velocity 76.6 cm/s Mitral A Point Velocity 89.7 cm/s Mitral E to A Ratio 0.9 LV E' Lateral Velocity 5.8 cm/s Mitral E to LV E' Lateral Ratio 13.3 LV E' Septal Velocity 5.7 cm/s Mitral E to LV E' Septal Ratio 13.5 TR Peak Velocity 232.5 cm/s TR Peak Gradient 21.6 mmHg PV Peak Velocity 95.0 cm/s PV Peak Gradient 3.6 mmHg FINDINGS Left Ventricle Normal left ventricular size, wall thickness, systolic function with no obvious regional wall motion abnormalities. Normal left ventricular diastolic filling pattern for age. The ejection fraction is visually estimated at 65 %. Right Ventricle The right ventricle is normal in size and systolic function. Left Atrium The left atrium is normal by two-dimensional, color flow and Doppler imaging with no structural abnormalities, no thrombus formation present. Right Atrium The right atrium is normal by two-dimensional imaging, color flow and Doppler imaging with no structural abnormalities, no thrombus formation present. Atrial Septum The interatrial septum appears normal with no evidence of a shunt. Aorta The aorta is normal by two-dimensional, color flow and Doppler interrogation. Mitral Valve Trace mitral regurgitation. Aortic Valve Aortic valve sclerosis without stenosis. Tricuspid Valve There is trace tricuspid valve regurgitation. Pulmonic Valve The pulmonic valve is not well visualized. There is no significant pulmonic valve regurgitation. Vessels The pulmonary artery appears normal. The inferior vena cava pulmonary and hepatic veins appear normal. Pericardium The pericardium is normal by two-dimensional imaging. There is no significant pericardial effusion. Other Findings TDS due to patient being uncooperative. wouldnt lay in bed. Did echo in wheel chair sitting up CONCLUSIONS Indication: Hypoxemia Normal left ventricular size and function. Ef estimated 65% The right ventricle is normal in size and systolic function. Aortic valve sclerosis without stenosis. Trace mitral and trace tricuspid regurgitation TDS due to patient being uncooperative. wouldnt lay in bed. Did echo in wheel chair sitting up Heena Campa (Electronically Signed) Final Date: 21 July 2025 17:11
== END | disposition home or self-care (01) ==
PROVIDERS: Referring Provider Family Medicine; Visit Provider Family Medicine
DX: I08.3 Combined rheumatic disorders of mitral, aortic and tricuspid valves (principal)
CPT/HCPCS: 93306

== ENCOUNTER 2025-08-05 22:23 | Inpatient (IN) | payer MEDICARE, MEDICAID, SELFPAY ==
[2025-08-05 22:27] VITALS: PULSE 94; O2SAT 93; BMI 24.8
--- NOTE | 2025-08-05 22:30 | PD.EDSOB ---
ED SOB =RME/HPI General Chief Complaint: Shortness of Breath/Dyspnea Stated Complaint: DIFFICULTY BREATHING Time Seen by Provider: 08/05/25 22:30 Arrival date/time: 08/05/25 22:23 RME / HPI RME / HPI Narrative: Dr. Davis?s Main ED Evaluation: 70yo female with a history of developmental delay, seizures, HTN, hypothyroidism, anemia BIBA from [facility] presents to the ED for a chief complaint of shortness of breath. 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 Patient's oxygen saturation dropped to 84% on 2L and was placed on 5L by SNF staff (went up to 89%). With EMS, patient went up to 93% on high-flow. Full ROS is unobtainable due to the patient's developmental delay. Per POLST, patient is a DNR on comfort measures. Related Data Home Medications ?Medication ?Instructions ?Recorded ?Confirmed alendronate 70 mg tablet 70 mg PO QWEEK 06/11/20 07/21/22 ascorbic acid (vitamin C) 500 mg 500 mg PO QDAY 06/11/20 07/21/22 tablet (Vitamin C) docusate sodium 250 mg capsule 250 mg PO BID 06/11/20 07/21/22 furosemide 40 mg tablet 40 mg PO QDAY 06/11/20 07/21/22 potassium chloride 10 mEq 10 meq PO BID 06/11/20 07/21/22 tablet,extended release hydroxyzine HCl 50 mg tablet 50 mg PO QPM 03/10/21 07/21/22 loratadine 10 mg tablet 10 mg PO QDAY 03/10/21 07/21/22 multivitamin with iron-mineral 1 tab PO QDAY 03/10/21 07/21/22 pantoprazole 40 mg tablet,delayed 40 mg PO QDAY 03/10/21 07/21/22 release (Protonix) acetaminophen 325 mg tablet 650 mg PO Q6H PRN Pain 08/21/21 07/21/22 magnesium hydroxide 400 mg/5 mL 30 ml PO Q72H 08/21/21 07/21/22 oral suspension (Milk of Magnesia) primidone 50 mg tablet 200 mg PO BID 08/21/21 07/21/22 levothyroxine 300 mcg tablet 300 mcg PO QDAY 07/21/22 07/21/22 Previous Rx's ?Medication ?Instructions ?Recorded apixaban 5 mg tablet (Eliquis) 10 mg (2 x 5 mg) PO BID #28 tabs 07/17/22 Allergies Allergy/AdvReac Type Severity Reaction Status Date / Time No Known Allergies Allergy Verified 03/28/25 06:53 Review of Systems Review of Systems ROS Unobtainable: other (unobtainable due to the patient's developmental delay) ED Exam Narrative Physical exam: Generally the patient is mentally delayed dyspneic and tachypneic elderly appearing female, heart regular rate and rhythm, lungs show crackles bilaterally with fair air exchange, abdomen shows no G-tube to be in place nontender minimally distended, extremities show very mild 1-2+ pitting pedal edema bilaterally. This is symmetric. Skin is cool pale and dry neurologic exam patient is mentally delayed but observed to be moving bilateral upper extremities Course Course Course Narrative: CXR is ordered for determining the etiology of shortness of breath. Quality Measures none Orders Category Date Time Status EKG (ED ONLY) *Do not use* NOW Care 08/05/25 22:32 Completed EKG (ED Only) Stat Exams 08/05/25 22:32 Draft XR chest 1V portable Stat Exams 08/05/25 22:32 Taken BNP [B-Type Natriuretic Peptide] Stat Lab 08/05/25 22:42 Completed Blood Culture (Lab) Stat Lab 08/05/25 22:45 Received CBC Stat Lab 08/05/25 22:42 Completed CMP [Comprehensive Metabolic Panel] Stat Lab 08/05/25 22:42 Completed Lactic Acid [Lactate (Lactic Acid)] Stat Lab 08/05/25 22:42 Completed Troponin I Stat Lab 08/05/25 22:42 Completed VBG [Venous Blood Gas] Stat Lab 08/05/25 22:42 Completed Piper/Tazo 3.375 gm Premix [Zosyn] Med 08/05/25 23:17 Active 3.375 gm in 50 ml IV X1 Vancomycin Inj 1,000 mg Med 08/05/25 23:30 Active Sodium Chloride 0.9% 250 ml [Ns] 250 ml IV X1 Vancomycin Pharmacy to Dose Med 08/06/25 09:00 Pending 1 each IV QDAY BiPAP / CPAP NEEDED RT 08/05/25 22:50 Active Vital Signs Vital signs: Vital Signs Temperature 96.3 F L 08/05/25 22:38 Pulse Rate 99 08/05/25 22:38 Respiratory Rate 31 H 08/05/25 22:38 Blood Pressure 144/109 H 08/05/25 22:38 Pulse Oximetry (%) 97 08/05/25 22:38 Oxygen Delivery Method Room Air 08/05/25 22:38 Oxygen Flow Rate 2 08/05/25 22:38 Shortness of Breath / Dyspnea MDM Narrative MDM Narrative:: Scribe Attestation: 08/05/25 - Jodie Braden am scribing for and in the presence of Dr. Davis. I interpreted all labs. Patient is a DO NOT RESUSCITATE CODE STATUS with comfort care only. Patient immediately was placed on BiPAP 10/5 and 35%. When the venous blood gas came back showing a pH of 7.29 and pCO2 of 72 the BiPAP settings were changed to 16/10. Chest x-ray shows elevation of left hemidiaphragm with a large gastric bubble which has been present before. No obvious consolidation. BNP is not elevated. EKG is nonischemic. Troponin is not elevated. I believe the patient may have aspirated. Because of this fact and due to the fact that the patient [place] [facility] a [facility] I went broad-spectrum antibiotic coverage after blood culture was obtained. Lactic acid level was not elevated. Patient received Zosyn 3.375 g IV and pharmacy dose vancomycin. I discussed this case with Dr. Macario he will admit the patient to hospital for further treatment and evaluation. Differential diagnosis: CHF, COPD, pneumonia, aspiration pneumonia, acute coronary syndrome Patient data External records reviewed:: [facility] previous records (Per chart review, patient was seen here on 03/28/25 for altered mental status.), EMS form and [facility] records (Per [facility], patient is a DNR on comfort measures.) Clinical information provided by:: EMS Social determinants that could affect healthcare access:: housing (SNF resident) Patient has the following chronic illnesses:: developmental delay, seizures, HTN, hypothyroidism, anemia How is presenting disease/condition affected by chronic disease/condition?: uneffected by Evaluation data The following diagnostics were reviewed and interpreted by me:: lab results, radiology exam(s) and EKG tracing(s) Lab and/or radiology exams considered but not ordered:: none Interpretation Summary: See MDM. Medications / Prescriptions Medications or Prescriptions considered but not ordered:: none Medication administrations:: Medication Administration History Piperacillin/Tazobactam/Dextrose (Zosyn) 3.375 gm in 50 mls @ 100 mls/hr IV X1 ONE; Protocol Stop: 08/05/25 23:46 Vancomycin HCl 1,000 mg/ (Sodium Chloride) 250 mls @ 120 mls/hr IV X1 ONE Stop: 08/06/25 01:34 Pharmacy Consult (Vancomycin Pharmacy To Dose 1 Each Each) 1 each IV QDAY CHRISTIANO Stop: 09/05/25 08:59 see above Consultations Consultation(s) initiated? (list below): Yes Diagnosis Shortness of Breath Differential Diagnosis: other (See MDM) Most likely diagnosis given after review of the tests above:: see clinical impression below Admission Indicated Admission indicated?: indicated Admission Request Was there a request for admission?: Yes Admission Attestation Admission request attestation: Discussed case with [] from Hospitalist service regarding admission. Discussed patients ED course, exam findings, labs, and radiology results. The Hospitalist [agrees,declines] to accept the patient for admission. Disposition Plan Disposition Plan: Admit Critical Care Time Critical Care Time Critical Care Time: Yes Total Critical Care Time (min.): 35 Attestation: Excluding other billable procedures Discharge Plan Plan Patient Disposition: Admit Acute Care w/in Hospital Prescriptions/Referrals Prescriptions/Med Rec: No Action primidone 50 mg tablet 200 mg PO BID acetaminophen 325 mg Tablet 650 mg PO Q6H PRN (Reason: Pain) Rx Instructions: for mild pain magnesium hydroxide [Milk of Magnesia] 400 mg/5 mL Suspension 30 ml PO Q72H Rx Instructions: for constipation furosemide 40 mg Tablet 40 mg PO QDAY alendronate 70 mg Tablet 70 mg PO QWEEK Rx Instructions: saturday potassium chloride 10 mEq Tablet Extended Release 10 meq PO BID ascorbic acid (vitamin C) [Vitamin C] 500 mg Tablet 500 mg PO QDAY docusate sodium 250 mg Capsule 250 mg PO BID Rx Instructions: for constipation hydroxyzine HCl 50 mg Tablet 50 mg PO QPM loratadine 10 mg Tablet 10 mg PO QDAY Rx Instructions: for allergies multivitamin with iron-mineral Tablet 1 tab PO QDAY pantoprazole [Protonix] 40 mg Tablet,Delayed Release (Dr/Ec) 40 mg PO QDAY levothyroxine 300 mcg Tablet 300 mcg PO QDAY Eliquis 5 mg tablet 10 mg PO BID Qty: 28 0RF Problem List Clinical Impression: Respiratory failure, Aspiration pneumonia, Intellectual delay Patient/Caregiver Discharge Instructions Print Language: Samoan Stand Alone Forms: Rosalia Award Info., Patient Portal Info Letter
--- NOTE | 2025-08-05 22:32 | XR_ITS ---
EXAMINATION: AP chest single view TECHNIQUE: AP portable semiupright chest single view Date and time: August 05 0 25, 1047 hours, comparison March 28, 2025 INDICATIONS: Shortness of breath today. FINDINGS: Air distended stomach Normal heart size Ectatic thoracic aorta Minor atelectasis in the right lower lung zone Reduced inspiratory effort Mild vascular congestion. No lobar pneumonia or pulmonary edema IMPRESSION: Minor atelectasis right lower lung zone No pneumonia or pulmonary edema
--- NOTE | 2025-08-05 22:32 | EKG_ITS ---
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
[2025-08-05 22:38] VITALS: BP 144/109; PULSE 99; RESP 31; TEMP 35.7; O2SAT 97
[2025-08-05 22:52] VITALS: PULSE 86; RESP 15; RESP 24; O2SAT 97
[2025-08-05 22:54] LABS: Base Excess, Venous 7 (-3-3); O2 Saturation, Venous 99 % (96-97); PCO2, Venous 73 mmHg (36-56); PO2, Venous 139 mmHg (15-58); pH, Venous 7.29 (7.33-7.66)
[2025-08-05 22:55] LABS: Lactate (Lactic Acid) 0.7 mMol/L (0.4-2.0)
[2025-08-05 23:12] LABS: Basophils # (Auto) 0.0 Thou/mm3 (0.0-0.2); Basophils % (Auto) 0 % (0-2.5); Eosinophils # (Auto) 0.1 Thou/mm3 (0.0-0.5); Eosinophils % (Auto) 2 % (0-10); Hematocrit 36.2 % (36.0-46.0); Hemoglobin 11.7 g/dL (12.0-16.0); Immature Granulocytes Auto 0.02 Thou/mm3 (0.00-0.00); Lymphocytes # (Auto) 1.2 Thou/mm3 (1.0-4.8); Lymphocytes % (Auto) 16 % (10-50); Mean Corpuscular HGB Conc 32.3 g/dl (31.0-37.0); Mean Corpuscular Hemoglobin 31.3 pg (25.0-35.0); Mean Corpuscular Volume 97 fL (80-100); Monocytes # (Auto) 0.4 Thou/mm3 (0.0-0.8); Monocytes % (Auto) 6 % (0-12); Neutrophils # (Auto) 5.5 Thou/mm3 (1.8-7.7); Neutrophils % (Auto) 76 % (37-80); Nucleated Red Blood Cell # 0.00 Thou/mm3 (0.00-0.00); Nucleated Red Blood Cell % 0 /100 WBC (0); Platelet Count 106 Thou/mm3 (140-440); RDW Standard Deviation 60.4 fL (36.4-46.3); Red Blood Count 3.74 Miln/mm3 (4.00-5.20); White Blood Count 7.3 Thou/mm3 (3.6-11.0)
[2025-08-05 23:13] LABS: B-Type Natriuretic Peptide 76 pg/mL (0-100)
[2025-08-05 23:15] LABS: Alanine Aminotransferase 17 U/L (10-49); Albumin, Serum 4.5 gm/dL (3.4-4.8); Albumin/Globulin Ratio 1.1 (1.2-2.2); Alkaline Phosphatase 135 U/L (46-116); Anion Gap 7 (7-16); Aspartate Amino Transferase 34 U/L (0-34); BUN/Creatinine Ratio 32 Ratio (12-20); Bilirubin,Total 0.2 mg/dL (0.3-1.2); Blood Urea Nitrogen 16 mg/dL (9-23); Calcium 9.0 mg/dL (8.3-10.6); Calcium (Corrected) 9.0 mg/dL (8.5-10.1); Carbon Dioxide 36.9 mMol/L (20.0-31.0); Chloride 102 mMol/L (98-107); Creatinine (Component) 0.5 mg/dL (0.6-1.3); Estimated Creatinine Clearance 87.9 mL/min (>60); Globulin 4.0 gm/dL (2.3-3.5); Glucose 121 mg/dL (74-106); Osmolality,Calculated 292 (275-295); Potassium 3.9 mMol/L (3.4-5.1); Sodium 146 mMol/L (136-145); Total Protein 8.5 gm/dL (5.7-8.2); Troponin I < 0.020 ng/mL (0.0-0.045); eGFR > 60 See Note
[2025-08-05 23:19] VITALS: PULSE 73; RESP 15; RESP 19; O2SAT 96
[2025-08-05] MEDS: PIPER/TAZO 3.375 GM PREMIX 3.375 GM/50 ML BAG IV (23:31)
--- NOTE | 2025-08-05 23:56 | PD.HHHP ---
Documentation for date of: 08/05/25 HPI - Hospitalist History of Present Illness History of present illness: Source: ED CC: difficu;ty breathing and hypoxia HPI: The patient is 70 yr old female with developmental delay, seizure disorder, hypothyroidism, history of STEMI, COVID-19, anemia. The patient presents with difficulty breathing and hypoxia. Duration is tonight few hours prior to admission. Patient reportedly all of a sudden became short of breath and hypoxic. There is unclear history of seizure episode. The patient is a chronic oxygen user at 2 L/min at [facility]. EMS had to bump her up to 4 L up to 5 L prior to arrival at the emergency room.. Associated symptoms tachypnea, agitation. There is no report of diarrhea and no report of vomiting. The patient has developmental delay and intellectually challenged. The patient is not verbally responsive. She has a one-to-one sitter in the ER bed 1 since she was started on BiPAP, IPAP 16, EPAP 5 at 15 L/min. There were no recent procedures and no change in medications. No use of OTC medications There was no recent travel and no sick contacts. No recent trauma or falls. Patient lives at [place] patient is DNR?comfort measures Past medical history: No diabetes, no hypertension, no stroke, no cancer Surgical history: no appendectomy, no gallbladder surgery Personal history: non smoker, non ETOH drinker, no recreational drug use. Family history: no diabetes, no hypertension, no heart disease, no canc Review of Systems Review of Systems ROS Unobtainable: unobtainable due to mental status Meds Home Medications and Allergies Home Medications ?Medication ?Instructions ?Recorded ?Confirmed ?Type alendronate 70 mg tablet 70 mg PO QWEEK 06/11/20 08/06/25 History ascorbic acid (vitamin C) 500 mg 500 mg PO QDAY 06/11/20 08/06/25 History tablet (Vitamin C) docusate sodium 250 mg capsule 250 mg PO BID 06/11/20 08/06/25 History furosemide 40 mg tablet 40 mg PO QDAY 06/11/20 08/06/25 History potassium chloride 10 mEq 10 meq PO BID 06/11/20 08/06/25 History tablet,extended release hydroxyzine HCl 50 mg tablet 50 mg PO QPM 03/10/21 08/06/25 History loratadine 10 mg tablet 10 mg PO QDAY 03/10/21 08/06/25 History multivitamin with iron-mineral 1 tab PO QDAY 03/10/21 08/06/25 History pantoprazole 40 mg tablet,delayed 40 mg PO QDAY 03/10/21 08/06/25 History release (Protonix) acetaminophen 325 mg tablet 650 mg PO Q6H PRN Pain 08/21/21 08/06/25 History magnesium hydroxide 400 mg/5 mL 30 ml PO Q72H 08/21/21 08/06/25 History oral suspension (Milk of Magnesia) primidone 50 mg tablet 200 mg PO BID 08/21/21 08/06/25 History levothyroxine 300 mcg tablet 300 mcg PO QDAY 07/21/22 08/06/25 History bisacodyl 10 mg rectal suppository 10 mg WA QDAY PRN constipation 08/06/25 08/06/25 History (Dulcolax (bisacodyl)) dextromethorphan-guaifenesin 10 10 ml PO Q4H PRN cough 08/06/25 08/06/25 History mg-100 mg/5 mL oral liquid (Modesta-Tussin DM) ferrous sulfate 325 mg (65 mg 325 mg PO BID 08/06/25 08/06/25 History iron) tablet hydrocortisone 1 % topical cream 1 applic topical Q8HR PRN rash 08/06/25 08/06/25 History Allergies Allergy/AdvReac Type Severity Reaction Status Date / Time No Known Allergies Allergy Verified 03/28/25 06:53 Exam Vital Signs Temp Pulse Resp BP Pulse Ox O2 Del Method O2 Flow Rate 96.3 F L 73 19 144/109 H 96 Room Air 2 08/05/25 22:38 08/05/25 23:19 08/05/25 23:19 08/05/25 22:38 08/05/25 23:19 08/05/25 22:38 08/05/25 22:38 FiO2 35 08/05/25 23:19 Gen: alert, oriented, mild distress, agitated, restless, on BiPAP mask Skin: Cool to touch, fair turgor, no rash HEENT: NCAT, [place], no nasoaural discharge, moist mucous membranes Neck: supple, no JVD, no thyromegaly Lungs: Occasional rhonchi CV: regular rate and rhythm, no murmurs, no edema Abd: soft and non tender, normoactive bowel sounds : no CVA tenderness Ext: no calf tenderness. Neuro: Awake, developmentally delayed Psych: Restless, agitated Results - Hospitalist Labs Diagrams: 08/05/25 22:42 08/05/25 22:42 Labs: Short CBC 08/05/25 Range/Units 22:42 WBC 7.3 (3.6-11.0) Thou/mm3 Hgb 11.7 L (12.0-16.0) g/dL Hct 36.2 (36.0-46.0) % Plt Count 106 L (140-440) Thou/mm3 BMP 08/05/25 22:42 Sodium 146 H Potassium 3.9 Chloride 102 Carbon Dioxide 36.9 H BUN 16 Creatinine 0.5 L Glucose 121 H Calcium 9.0 Cardiac Enzymes 08/05/25 Range/Units 22:42 Troponin I < 0.020 (0.0-0.045) ng/mL Liver Function 08/05/25 Range/Units 22:42 Total Bilirubin 0.2 L (0.3-1.2) mg/dL AST 34 (0-34) U/L ALT 17 (10-49) U/L Alkaline Phosphatase 135 H (46-116) U/L Albumin 4.5 (3.4-4.8) gm/dL ABG Interpretation ABG results: 08/05/25 22:42 VBG pH 7.29 L VBG pCO2 73 H VBG pO2 139 H VBG Base Excess 7 H Assessment & Plan -Hospitalist Patient Synopsis Assessment and plan: This is a 70-year-old female who is developmentally delayed, with hypothyroidism, seizure disorder presents with increasing work of breathing, hypoxia and agitation. At baseline she uses 2 L nasal cannula oxygen. In the ER the patient required BiPAP 1. Acute hypoxic respiratory failure -The patient was noted to be hypoxic requiring BiPAP, at baseline she requires 2 L. The patient was increased to 5 L by EMS. In the ER she was started on BiPAP. She is currently on IP16 over EP 5 to 15 L/min. She is tolerating BiPAP. Repeat blood gases after 2 hours The patient has a one-to-one sitter. She will be admitted to [facility] on board. The patient will receive inhaled bronchodilators as needed. 2. Possible aspiration pneumonia -The patient will be started on Zosyn 4.5 g IV every 6 hours --The patient had does not have a PEG tube. Speech/swallow evaluation requested. 3. Seizure -Seizure precaution observed. Patient will be restarted on antiseizure medication. 3. Developmental delay -Continue to provide supportive measures. 4. Hypothyroidism -The patient is on levothyroxine, repeat TSH level 5. Hypothermia, prob sepsis -Paulina hearn requested --Treat underlying infection. - Check TSH level Other previous diagnosis: DVT Left hip fracture Quality Measures Quality Measures none Advance care planning discussed with:: other (see POLST need to contact medical decision maker)
[2025-08-06] VITALS (16 sets, daily range): BP systolic 92–132; BP diastolic 53–83; PULSE 63–93; RESP 12–28; TEMP 35.2–36.4; O2SAT 3–100; BMI 25.9
[2025-08-06 00:48] LABS: Troponin I < 0.020 ng/mL (0.0-0.045)
--- NOTE | 2025-08-06 00:49 | PC.NURSE ---
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
[2025-08-06] MEDS: RINGERS LACTATED 1000 ML 1,000 ML 75 ML IV ×2 (01:05→14:59)
[2025-08-06] MEDS: Vancomycin Inj 1,000 MG in SODIUM CHLORIDE 0.9% 250 ML 250 ML 120 MG IV (01:05)
[2025-08-06] MEDS: METHYLPREDNISOLONE SOD 40 MG IV (01:25)
--- NOTE | 2025-08-06 01:40 | PC.NURSE ---
CALLED DR MOREJON TO CONFIRM IF HE WAS OK WITH BIPAP EVEN WITH PT'S RECORDED DNR WITH COMFORT MEASURES. DR SKELTONAYED IT STATING HE WILL CONTACT THE CONSERVATOR TOMORROW
[2025-08-06 02:39] LABS: Thyroid Stimulating Hormone 0.95 uIU/mL (0.55-4.78)
[2025-08-06] MEDS: FUROSEMIDE INJ 10 MG/ML VIAL 2 ML 20 MG IVP ×2 (03:59→13:33)
[2025-08-06 06:03] LABS: Basophils # (Auto) 0.0 Thou/mm3 (0.0-0.2); Basophils % (Auto) 0 % (0-2.5); Eosinophils # (Auto) 0.0 Thou/mm3 (0.0-0.5); Eosinophils % (Auto) 0 % (0-10); Hematocrit 32.9 % (36.0-46.0); Hemoglobin 10.5 g/dL (12.0-16.0); Immature Granulocytes Auto 0.01 Thou/mm3 (0.00-0.00); Lymphocytes # (Auto) 0.6 Thou/mm3 (1.0-4.8); Lymphocytes % (Auto) 11 % (10-50); Mean Corpuscular HGB Conc 31.9 g/dl (31.0-37.0); Mean Corpuscular Hemoglobin 30.6 pg (25.0-35.0); Mean Corpuscular Volume 96 fL (80-100); Monocytes # (Auto) 0.1 Thou/mm3 (0.0-0.8); Monocytes % (Auto) 2 % (0-12); Neutrophils # (Auto) 4.6 Thou/mm3 (1.8-7.7); Neutrophils % (Auto) 86 % (37-80); Nucleated Red Blood Cell # 0.00 Thou/mm3 (0.00-0.00); Nucleated Red Blood Cell % 0 /100 WBC (0); Platelet Count 92 Thou/mm3 (140-440); RDW Standard Deviation 60.0 fL (36.4-46.3); Red Blood Count 3.43 Miln/mm3 (4.00-5.20); White Blood Count 5.3 Thou/mm3 (3.6-11.0)
[2025-08-06] MEDS: PIPER/TAZO INJ 3.375 GM in SODIUM CHLORIDE 0.9% (POP) 100 ML IV ×3 (06:07→21:12)
[2025-08-06 06:37] LABS: Anion Gap 4 (7-16); BUN/Creatinine Ratio 35 Ratio (12-20); Blood Urea Nitrogen 14 mg/dL (9-23); Calcium 8.4 mg/dL (8.3-10.6); Carbon Dioxide 39.8 mMol/L (20.0-31.0); Chloride 102 mMol/L (98-107); Creatinine (Component) 0.4 mg/dL (0.6-1.3); Estimated Creatinine Clearance 112.0 mL/min (>60); Glucose 130 mg/dL (74-106); Osmolality,Calculated 293 (275-295); Potassium 4.1 mMol/L (3.4-5.1); Sodium 146 mMol/L (136-145); Troponin I < 0.020 ng/mL (0.0-0.045); eGFR > 60 See Note
[2025-08-06] MEDS: ENOXAPARIN SOD INJ 40 MG/0.4 ML SYRINGE SC (08:31)
[2025-08-06] MEDS: MULTIVITAMINS TABLET 1 TAB PO (08:33)
[2025-08-06] MEDS: ASCORBIC ACID 250 MG TABLET 500 MG PO (08:33)
[2025-08-06] MEDS: LEVOTHYROXINE SODIUM 100 MCG TABLET 300 MCG PO (08:33)
[2025-08-06] MEDS: POTASSIUM CHLORIDE 10% 20 MEQ/15 ML UDC 10 MEQ PO ×2 (08:33→21:11)
[2025-08-06] MEDS: PANTOPRAZOLE 40 MG TABLET PO (08:33)
[2025-08-06 09:20] LABS: Base Excess, Venous 10 (-3-3); O2 Saturation, Venous 99 % (96-97); PCO2, Venous 60 mmHg (36-56); PO2, Venous 116 mmHg (15-58); pH, Venous 7.40 (7.33-7.66)
--- NOTE | 2025-08-06 09:52 | PC.SS ---
Patient Sabina Bryan is a 70 year old female admitted for Acute Hypoxic Respiratory Failure. SS contacted patient's sister, Tamia Bryan via phone contact. Tamia reports [facility] and is a long-term resident since June 2020. Patient is bed bound and unable to ambulate. Patient needs assistance completing ADL's. Tamia Reports she is surrogate decision maker, . At time of discharge patient will return back to [place]. SS will set up transportation with [facility]. Discharge plan: Home Next of Kin: Tamia Bryan
[2025-08-06] MEDS: VANCOMYCIN/NS 1 GM IVPB 200 ML IV ×2 (10:10→21:12)
[2025-08-06] MEDS: PRIMIDONE 50 MG TABLET 200 MG PO ×2 (10:53→21:12)
--- NOTE | 2025-08-06 12:01 | PD.HHPROG ---
Documentation for date of: 08/06/25 Subjective - Hospitalist Subjective Interval history: Patient seen at bedside. She is responding to questions but appears to have some underlying developmental delay. She responds yes and no to questions but limited additional history obtained. She did say yes when asked if she had a cough. She denies pain. Bedside sitter present and reports she worked well with speech therapy. Patient was transitioned off BiPAP overnight and now on nasal cannula. She is afebrile. Patient denied headache, chest pain, abdominal pain, and no urinary symptoms. Review of Systems Review of Systems Systems Reviewed: All systems reviewed, normal except as documented Exam Vital Signs Temp Pulse Resp BP Pulse Ox O2 Del Method O2 Flow Rate 96.5 F L 77 15 94/53 L 96 BiPAP 3 08/06/25 08:00 08/06/25 08:00 08/06/25 08:00 08/06/25 08:00 08/06/25 10:34 08/06/25 08:00 08/06/25 10:34 FiO2 35 08/06/25 06:36 Narrative Gen: Sitting up in bed and resting comfortably HEENT: NCAT, [place], moist mucous membranes Neck: supple, no JVD Lungs: Occasional rhonchi CV: regular rate and rhythm, no murmurs, normal S1/S2 Abd: soft and non tender, normoactive bowel sounds : no CVA tenderness Ext: no calf tenderness. Neuro: Awake, alert, follows simple commands Objective - Hospitalist Labs Diagram: 08/06/25 05:18 08/06/25 05:18 Labs: Laboratory Results - last 24 hr 08/05/25 08/06/25 08/06/25 22:42 00:23 05:18 WBC 7.3 5.3 RBC 3.74 L 3.43 L Hgb 11.7 L 10.5 L Hct 36.2 32.9 L MCV 97 96 MCH 31.3 30.6 MCHC 32.3 31.9 RDW Std Deviation 60.4 H 60.0 H Plt Count 106 L 92 L Neut % (Auto) 76 86 H Lymph % (Auto) 16 11 Laporte % (Auto) 6 2 Eos % (Auto) 2 0 Baso % (Auto) 0 0 Neut # (Auto) 5.5 4.6 Lymph # (Auto) 1.2 0.6 L [place]orte # (Auto) 0.4 0.1 Eos # (Auto) 0.1 0.0 Baso # (Auto) 0.0 0.0 Immature Gran # (Auto) 0.02 H 0.01 H Absolute Nucleated RBC 0.00 0.00 Immature Gran % 0 0 Nucleated RBC % 0 0 VBG pH 7.29 L VBG pCO2 73 H VBG pO2 139 H VBG O2 Sat (Giacomo) 99 H VBG Base Excess 7 H Sodium 146 H 146 H Potassium 3.9 4.1 Chloride 102 102 Carbon Dioxide 36.9 H 39.8 H Anion Gap 7 4 L BUN 16 14 Creatinine 0.5 L 0.4 L Estim Creat Clear Calc 87.9 112.0 eGFR > 60 > 60 BUN/Creatinine Ratio 32 H 35 H Glucose 121 H 130 H Calculated Osmolality 292 293 Lactic Acid 0.7 Calcium 9.0 8.4 Corrected Calcium 9.0 Total Bilirubin 0.2 L AST 34 ALT 17 Alkaline Phosphatase 135 H Troponin I < 0.020 < 0.020 < 0.020 B-Natriuretic Peptide 76 Total Protein 8.5 H Albumin 4.5 Globulin 4.0 H Albumin/Globulin Ratio 1.1 L TSH 0.95 08/06/25 09:01 WBC RBC Hgb Hct MCV MCH MCHC RDW Std Deviation Plt Count Neut % (Auto) Lymph % (Auto) [place] % (Auto) Eos % (Auto) Baso % (Auto) Neut # (Auto) Lymph # (Auto) Laporte # (Auto) Eos # (Auto) Baso # (Auto) Immature Gran # (Auto) Absolute Nucleated RBC Immature Gran % Nucleated RBC % VBG pH 7.40 VBG pCO2 60 H D VBG pO2 116 H D VBG O2 Sat (Giacomo) 99 H VBG Base Excess 10 H Sodium Potassium Chloride Carbon Dioxide Anion Gap BUN Creatinine Estim Creat Clear Calc eGFR BUN/Creatinine Ratio Glucose Calculated Osmolality Lactic Acid Calcium Corrected Calcium Total Bilirubin AST ALT Alkaline Phosphatase Troponin I B-Natriuretic Peptide Total Protein Albumin Globulin Albumin/Globulin Ratio TSH ABG Interpretation ABG results: 08/05/25 08/06/25 22:42 09:01 VBG pH 7.29 L 7.40 VBG pCO2 73 H 60 H D VBG pO2 139 H 116 H D VBG Base Excess 7 H 10 H Assessment & Plan Patient Synopsis Patient is a 70-year-old female with developmental delay, primary hypertension, seizure disorder, hypothyroidism, gastritis and history of normocytic anemia who presents to [facility] emergency department on 08/05/2025 from care facility with chief complaint of shortness of breath, hypoxia, and agitation. #Acute Hypoxic & Hypercapnic Respiratory Failure #Aspiration Pneumonia versus pneumonitis - Presented with shortness of breath, hypoxia, and likely aspiration event prior to arrival - CXR on admission clear although was taken shortly after event. - Plan: Original ABG showed hypercapnia. patient was placed on BiPAP and has been weaned down to nasal cannula. Continue supplemental oxygen. Continue IV antibiotics. Follow-up culture results when available. Breathing treatments as needed. Incentive spirometer. # Dysphagia Chart review revealed history of choking spells years ago but has been symptom-free - Plan: Patient was seen by speech therapy who recommends dysphagia 1 and regular liquids. As patient improves we will attempt to advance diet. If no improvement we will consider gastroenterology consultation. 3. Seizure Disorder -Seizure precaution . - Plan: Continue home primidone 4. Developmental delay -Continue to provide supportive measures. 5. Hypothyroidism -Plan: Continue home levothyroxine. TSH within normal limits. 6. History of deep vein thrombosis History of DVT in 2021 which was provoked secondary to fracture - Plan: Appears patient still takes Eliquis although likely not needed. Will continue DVT prophylaxis while hospitalized. DVT prophylaxis: Lovenox subcu Diet: Dysphagia 1 diet and regular liquids CODE STATUS: DNR Dispo: Admitted to telemetry for acute respiratory failure in the setting of aspiration pneumonia/pneumonitis Dr. Clifton MD Time Spent with Patient Time: Total time spent is greater than 50% in coordination of care (as documented) at patient's floor/unit and/or counseling patient: Time with patient: Greater than 35 minutes Reason for Continued Stay Reason for continued stay: IV antibiotics Quality Measures Quality Measures none Advance care planning discussed with:: patient
[2025-08-06 13:08] LABS: Troponin I < 0.020 ng/mL (0.0-0.045)
[2025-08-06] MEDS: DOCUSATE SOD 250 MG CAPSULE PO (21:13)
[2025-08-07] VITALS (13 sets, daily range): BP systolic 100–142; BP diastolic 48–95; PULSE 71–90; RESP 18–88; TEMP 36–36.1; O2SAT 94–98; BMI 25.9
[2025-08-07] MEDS: FUROSEMIDE INJ 10 MG/ML VIAL 2 ML 20 MG IVP (02:22)
--- NOTE | 2025-08-07 04:07 | PC.NURSE ---
Received phone call from [employer] Adalberto regarding patient's positive blood culture result. Was made aware that one of the blood culture vial (aerobic vial) tested positive for gram positive cocci resembling staph. Preceded to then contact MD Macario and made him aware regarding the findings. No orders received at this time.
[2025-08-07] MEDS: PIPER/TAZO INJ 3.375 GM in SODIUM CHLORIDE 0.9% (POP) 100 ML IV ×3 (05:14→21:14)
[2025-08-07 06:08] LABS: Basophils # (Auto) 0.0 Thou/mm3 (0.0-0.2); Basophils % (Auto) 1 % (0-2.5); Eosinophils # (Auto) 0.1 Thou/mm3 (0.0-0.5); Eosinophils % (Auto) 2 % (0-10); Hematocrit 30.1 % (36.0-46.0); Hemoglobin 9.8 g/dL (12.0-16.0); Immature Granulocytes Auto 0.01 Thou/mm3 (0.00-0.00); Lymphocytes # (Auto) 2.5 Thou/mm3 (1.0-4.8); Lymphocytes % (Auto) 46 % (10-50); Mean Corpuscular HGB Conc 32.6 g/dl (31.0-37.0); Mean Corpuscular Hemoglobin 31.3 pg (25.0-35.0); Mean Corpuscular Volume 96 fL (80-100); Monocytes # (Auto) 0.5 Thou/mm3 (0.0-0.8); Monocytes % (Auto) 9 % (0-12); Neutrophils # (Auto) 2.3 Thou/mm3 (1.8-7.7); Neutrophils % (Auto) 42 % (37-80); Nucleated Red Blood Cell # 0.00 Thou/mm3 (0.00-0.00); Nucleated Red Blood Cell % 0 /100 WBC (0); Platelet Count 92 Thou/mm3 (140-440); RDW Standard Deviation 60.7 fL (36.4-46.3); Red Blood Count 3.13 Miln/mm3 (4.00-5.20); White Blood Count 5.4 Thou/mm3 (3.6-11.0)
[2025-08-07 06:32] LABS: Anion Gap 7 (7-16); BUN/Creatinine Ratio 33 Ratio (12-20); Blood Urea Nitrogen 13 mg/dL (9-23); Calcium 8.2 mg/dL (8.3-10.6); Carbon Dioxide 37.7 mMol/L (20.0-31.0); Chloride 102 mMol/L (98-107); Creatinine (Component) 0.4 mg/dL (0.6-1.3); Estimated Creatinine Clearance 112.0 mL/min (>60); Glucose 100 mg/dL (74-106); Osmolality,Calculated 292 (275-295); Potassium 3.5 mMol/L (3.4-5.1); Sodium 147 mMol/L (136-145); eGFR > 60 See Note
[2025-08-07] MEDS: RINGERS LACTATED 1000 ML 1,000 ML 75 ML IV (07:39)
[2025-08-07 09:20] LABS: Vancomycin,Trough 20.6 mcg/mL (5.0-10.0)
[2025-08-07] MEDS: POTASSIUM CHLORIDE 10% 20 MEQ/15 ML UDC 10 MEQ PO ×2 (09:42→21:14)
[2025-08-07] MEDS: DOCUSATE SOD LIQD 100 MG/10 ML UDC 250 MG PO ×2 (09:43→21:14)
[2025-08-07] MEDS: PANTOPRAZOLE 40 MG TABLET PO (09:44)
[2025-08-07] MEDS: ENOXAPARIN SOD INJ 40 MG/0.4 ML SYRINGE SC (09:44)
[2025-08-07] MEDS: MULTIVITAMINS TABLET 1 TAB PO (09:44)
[2025-08-07] MEDS: LEVOTHYROXINE SODIUM 100 MCG TABLET 300 MCG PO (09:44)
[2025-08-07] MEDS: PRIMIDONE 50 MG TABLET 200 MG PO ×2 (09:44→21:14)
[2025-08-07] MEDS: ASCORBIC ACID 250 MG TABLET 500 MG PO (09:44)
[2025-08-07] MEDS: VANCOMYCIN/NS 750 MG IVPB 750 MG/150 ML BAG 120 MG IV ×2 (14:26→21:15)
--- NOTE | 2025-08-07 14:32 | ESPR_ITS ---
Documentation for date of: 08/07/25 Subjective - Hospitalist Subjective Interval history: Patient seen at bedside. No acute overnight events. Patient has underlying developmental delay and no reliable history can be obtained at this time. During my evaluation repeatedly states she wants to go home. Patient is afebrile. Mild tachypnea. O2 sat 94% on 1 L nasal cannula. She appears to be tolerating dysphagia 1 pur?ed diet. Patient's family was updated yesterday. Review of Systems Review of Systems ROS Unobtainable: unobtainable due to medical condition Exam Vital Signs Temp Pulse Resp BP Pulse Ox O2 Del Method O2 Flow Rate 97 F 85 24 H 139/95 H 94 L Nasal Cannula 1 08/07/25 12:00 08/07/25 12:00 08/07/25 12:00 08/07/25 12:00 08/07/25 12:00 08/07/25 12:00 08/07/25 12:00 FiO2 35 08/06/25 20:00 Narrative Gen: Sitting up in bed and resting comfortably HEENT: NCAT, [place], moist mucous membranes Neck: supple, no JVD Lungs: rhonchi lung bases CV: regular rate and rhythm, no murmurs, normal S1/S2 Abd: soft and non tender, normoactive bowel sounds : no CVA tenderness Ext: no calf tenderness. Neuro: Awake, alert, follows simple commands Objective - Hospitalist Labs Diagram: 08/07/25 05:12 08/07/25 05:12 Labs: Laboratory Results - last 24 hr 08/07/25 08/07/25 05:12 08:55 WBC 5.4 RBC 3.13 L Hgb 9.8 L Hct 30.1 L MCV 96 MCH 31.3 MCHC 32.6 RDW Std Deviation 60.7 H Plt Count 92 L Neut % (Auto) 42 Lymph % (Auto) 46 [place] % (Auto) 9 Eos % (Auto) 2 Baso % (Auto) 1 Neut # (Auto) 2.3 Lymph # (Auto) 2.5 [place] # (Auto) 0.5 Eos # (Auto) 0.1 Baso # (Auto) 0.0 Immature Gran # (Auto) 0.01 H Absolute Nucleated RBC 0.00 Immature Gran % 0 Nucleated RBC % 0 Sodium 147 H Potassium 3.5 D Chloride 102 Carbon Dioxide 37.7 H Anion Gap 7 BUN 13 Creatinine 0.4 L Estim Creat Clear Calc 112.0 eGFR > 60 BUN/Creatinine Ratio 33 H Glucose 100 Calculated Osmolality 292 Calcium 8.2 L Vancomycin Trough 20.6 H* ABG Interpretation ABG results: 08/05/25 08/06/25 22:42 09:01 VBG pH 7.29 L 7.40 VBG pCO2 73 H 60 H D VBG pO2 139 H 116 H D VBG Base Excess 7 H 10 H Assessment & Plan Patient Synopsis Patient is a 70-year-old female with developmental delay, primary hypertension, seizure disorder, hypothyroidism, gastritis and history of normocytic anemia who presents to [facility] emergency department on 08/05/2025 from care facility with chief complaint of shortness of breath, hypoxia, and agitation. #Acute Hypoxic & Hypercapnic Respiratory Failure #Aspiration Pneumonia versus pneumonitis - Presented with shortness of breath, hypoxia, and likely aspiration event prior to arrival - CXR on admission clear although was taken shortly after event. - Plan: Original ABG showed hypercapnia. patient was placed on BiPAP and has been weaned down to nasal cannula. Continue supplemental oxygen. Continue IV antibiotics. Follow-up culture results when available. Breathing treatments as needed. Incentive spirometer. #?Bacteremia 08/05/25 Blood cxs: Preliminarily show 1 of 2 blood cultures growing GPC MRSA screen positive Plan: Continue IV vancomycin for now (pharmacy to dose and follow-up trough level) and we will await final speciation # Dysphagia Chart review revealed history of choking spells years ago but has been symptom- free - Plan: Patient was seen by speech therapy who recommends dysphagia 1 pureedand regular liquids and we will continue to monitor for any aspiration events. #Seizure Disorder -Seizure precaution . - Plan: Continue home primidone #Developmental delay -Continue to provide supportive measures. #Hypothyroidism -Plan: Continue home levothyroxine. TSH within normal limits. #History of deep vein thrombosis History of DVT in 2021 which was provoked secondary to fracture - Plan: Appears patient still takes Eliquis although likely not needed. Will continue DVT prophylaxis while hospitalized. DVT prophylaxis: Lovenox subcu Diet: Dysphagia 1 diet and regular liquids CODE STATUS: DNR Dispo: Admitted to telemetry for acute respiratory failure in the setting of aspiration pneumonia/pneumonitis Dr. Clifton MD Time Spent with Patient Time: Total time spent is greater than 50% in coordination of care (as documented) at patient's floor/unit and/or counseling patient: Time with patient: Greater than 35 minutes Reason for Continued Stay Reason for continued stay: IV antibiotics Quality Measures Quality Measures none Advance care planning discussed with:: satya
[2025-08-08] VITALS (8 sets, daily range): BP systolic 131–154; BP diastolic 75–91; PULSE 72–83; RESP 18–23; TEMP 36.3–37.2; O2SAT 94–97
[2025-08-08] MEDS: PIPER/TAZO INJ 3.375 GM in SODIUM CHLORIDE 0.9% (POP) 100 ML IV ×3 (05:06→21:58)
[2025-08-08 05:54] LABS: Basophils # (Auto) 0.0 Thou/mm3 (0.0-0.2); Basophils % (Auto) 1 % (0-2.5); Eosinophils # (Auto) 0.3 Thou/mm3 (0.0-0.5); Eosinophils % (Auto) 6 % (0-10); Hematocrit 30.3 % (36.0-46.0); Hemoglobin 9.8 g/dL (12.0-16.0); Immature Granulocytes Auto 0.01 Thou/mm3 (0.00-0.00); Lymphocytes # (Auto) 2.0 Thou/mm3 (1.0-4.8); Lymphocytes % (Auto) 34 % (10-50); Mean Corpuscular HGB Conc 32.3 g/dl (31.0-37.0); Mean Corpuscular Hemoglobin 30.6 pg (25.0-35.0); Mean Corpuscular Volume 95 fL (80-100); Monocytes # (Auto) 0.6 Thou/mm3 (0.0-0.8); Monocytes % (Auto) 11 % (0-12); Neutrophils # (Auto) 2.8 Thou/mm3 (1.8-7.7); Neutrophils % (Auto) 49 % (37-80); Nucleated Red Blood Cell # 0.00 Thou/mm3 (0.00-0.00); Nucleated Red Blood Cell % 0 /100 WBC (0); Platelet Count 104 Thou/mm3 (140-440); RDW Standard Deviation 59.7 fL (36.4-46.3); Red Blood Count 3.20 Miln/mm3 (4.00-5.20); White Blood Count 5.9 Thou/mm3 (3.6-11.0)
[2025-08-08 06:17] LABS: Anion Gap 8 (7-16); BUN/Creatinine Ratio 37 Ratio (12-20); Blood Urea Nitrogen 11 mg/dL (9-23); Calcium 8.6 mg/dL (8.3-10.6); Carbon Dioxide 32.9 mMol/L (20.0-31.0); Chloride 105 mMol/L (98-107); Creatinine (Component) 0.3 mg/dL (0.6-1.3); Estimated Creatinine Clearance 149.0 mL/min (>60); Glucose 89 mg/dL (74-106); Osmolality,Calculated 288 (275-295); Potassium 3.8 mMol/L (3.4-5.1); Sodium 146 mMol/L (136-145); eGFR > 60 See Note
[2025-08-08] MEDS: PRIMIDONE 50 MG TABLET 200 MG PO ×2 (08:06→22:02)
[2025-08-08] MEDS: ASCORBIC ACID 250 MG TABLET 500 MG PO (08:07)
[2025-08-08] MEDS: PANTOPRAZOLE 40 MG TABLET PO (08:07)
[2025-08-08] MEDS: MULTIVITAMINS TABLET 1 TAB PO (08:07)
[2025-08-08] MEDS: LEVOTHYROXINE SODIUM 100 MCG TABLET 300 MCG PO (08:07)
[2025-08-08] MEDS: DOCUSATE SOD LIQD 100 MG/10 ML UDC 250 MG PO ×2 (08:11→21:58)
[2025-08-08] MEDS: POTASSIUM CHLORIDE 10% 20 MEQ/15 ML UDC 10 MEQ PO ×2 (08:11→21:58)
[2025-08-08] MEDS: ENOXAPARIN SOD INJ 40 MG/0.4 ML SYRINGE SC (08:13)
[2025-08-08] MEDS: VANCOMYCIN/NS 750 MG IVPB 750 MG/150 ML BAG 120 MG IV (10:01)
[2025-08-08] MEDS: MUPIROCIN OINT 2% 15 GM TUBE TOP (10:06)
--- NOTE | 2025-08-08 15:02 | PC.SS ---
Rounding note: on iv antibiotics one more day.
--- NOTE | 2025-08-08 17:42 | ESPR_ITS ---
Documentation for date of: 08/08/25 Senior Resident Attestation: I have discussed the case with supervising physician and rn intern physician involved in the care of patient. I personally saw and examined patient and discussed the assessment and plan with the entire medical team, including attending. I agree with assessment and plan as documented below. - The patient's plan was discussed with attending Dr. Clifton Royal MD PGY2 Internal Medicine Subjective Subjective Interval history: NAEON, patient in right arm soft restraint. Developmental delay unable to assess AAO. Will call sister about update and hospital course. Vanc trough ordered. Reordered Blood Cx x2. Exam Vital Signs Temp Pulse Resp BP Pulse Ox O2 Del Method O2 Flow Rate 97.4 F 75 18 146/85 H 94 L Nasal Cannula 2 08/08/25 16:00 08/08/25 16:00 08/08/25 16:00 08/08/25 16:00 08/08/25 16:00 08/08/25 16:00 08/08/25 11:43 FiO2 35 08/07/25 20:00 Narrative Exam General: No acute distress, sitting upright in hospital bed with soft restraint on right forearm Eye: PERRL, EOMI, normal conjunctiva, no scleral icterus HENT: Normocephalic, atraumatic, normal hearing, pink and moist mucous membranes, no oral lesions in mouth, throat shows no erythema Neck: Supple, non-tender, no JVD, no lymphadenopathy Lungs: Clear to auscultation bilaterally except fine crackles on posterior lower lung lobes, non-labored respirations, symmetric chest rise, no use of accessory muscles Heart: Normal S1 and S2, no S3 or S4 appreciated. Normal rate and regular rhythm, no murmurs, rubs gallops, or edema. Peripheral pulses intact bilaterally, capillary refill brisk distally Abdomen: Soft, non-tender, non-distended, normal bowel sounds. No guarding or rebound tenderness. Musculoskeletal: Normal range of motion and strength. Skin: Skin is warm, dry, no rashes or lesions. Neurologic: Alert, awake and oriented x3. CN II-XII grossly intact. No focal neuro deficits. No signs of meningeal irritation noted. Psychiatric: Cooperative, appropriate mood and affect Objective Labs 08/09/25 05:20 08/09/25 05:20 Labs: Laboratory Results - last 24 hr 08/08/25 04:30 WBC 5.9 RBC 3.20 L Hgb 9.8 L Hct 30.3 L MCV 95 MCH 30.6 MCHC 32.3 RDW Std Deviation 59.7 H Plt Count 104 L Neut % (Auto) 49 Lymph % (Auto) 34 [place] % (Auto) 11 Eos % (Auto) 6 Baso % (Auto) 1 Neut # (Auto) 2.8 Lymph # (Auto) 2.0 [place] # (Auto) 0.6 Eos # (Auto) 0.3 Baso # (Auto) 0.0 Immature Gran # (Auto) 0.01 H Absolute Nucleated RBC 0.00 Immature Gran % 0 Nucleated RBC % 0 Sodium 146 H Potassium 3.8 Chloride 105 Carbon Dioxide 32.9 H Anion Gap 8 BUN 11 Creatinine 0.3 L Estim Creat Clear Calc 149.0 eGFR > 60 BUN/Creatinine Ratio 37 H Glucose 89 Calculated Osmolality 288 Calcium 8.6 ABG Interpretation ABG results: 08/05/25 08/06/25 22:42 09:01 VBG pH 7.29 L 7.40 VBG pCO2 73 H 60 H D VBG pO2 139 H 116 H D VBG Base Excess 7 H 10 H Quality Measures Quality Measures none Advance care planning discussed with:: sibling Assessment & Plan Assessment Current Active Medications: Generic Name Dose Route Start Last Admin Trade Name Freq PRN Reason Stop Dose Admin Acetaminophen 650 mg 08/05/25 23:49 Acetaminophen Supp 650 Mg Supp [place] 09/04/25 23:48 Q6HR PRN FEVER > 101.5 Acetaminophen 650 mg 08/05/25 23:49 Acetaminophen 325 Mg Tablet PO 09/04/25 23:48 Q6H PRN PAIN SCALE 1-3 (mild Albuterol/Ipratropium 3 ml 08/06/25 00:05 Albuterol/Ipratropium (Duoneb) Rt Shari 3 Ml Nebu INH 09/05/25 00:04 Q4HR PRN wheezing Ascorbic Acid 500 mg 08/06/25 09:00 08/08/25 08:07 Ascorbic Acid 250 Mg Tablet PO 09/05/25 08:59 500 mg QDAY CHRISTIANO Administration Docusate Sodium 250 mg 08/07/25 09:45 08/08/25 08:11 Docusate Sod Liqd 100 Mg/10 Ml Udc PO 09/06/25 09:44 250 mg BID CHRISTIANO Administration Protocol Enoxaparin Sodium 40 mg 08/06/25 09:00 08/08/25 08:13 Enoxaparin Sod Inj 40 Mg/0.4 Ml Syringe SC 08/20/25 08:59 40 mg QDAY CHRISTIANO Administration Hydroxyzine HCl 50 mg 08/06/25 21:00 08/07/25 21:14 Hydroxyzine Hcl 25 Mg Tablet PO 09/05/25 20:59 50 mg QPM CHRISTIANO Administration Piperacillin Sod/Tazobactam 100 mls @ 25 mls/hr 08/06/25 06:00 08/08/25 13:26 Sod 3.375 gm/ Sodium Chloride IV 08/13/25 05:59 25 mls/hr Q8HR CHRISTIANO Administration Protocol Vancomycin/Sodium Chloride 200 mls @ 120 mls/hr 08/08/25 22:00 Vancomycin/Ns 1 Gm Ivpb IV 08/15/25 21:59 Q8HR CHRISTIANO Protocol Levothyroxine Sodium 300 mcg 08/06/25 09:00 08/08/25 08:07 Levothyroxine Sodium 100 Mcg Tablet PO 09/05/25 08:59 300 mcg QDAY CHRISTIANO Administration Loratadine 10 mg 08/06/25 09:00 08/08/25 08:07 Loratadine 10 Mg Tablet PO 09/05/25 08:59 10 mg QDAY CHRISTIANO Administration Magnesium Hydroxide 30 ml 08/06/25 01:15 08/06/25 01:37 Milk Of Magnesia Susp 30 Ml Udc PO 09/05/25 01:14 Not Given Q72H CHRISTIANO Protocol Mineral Oil 30 ml 08/05/25 23:49 Mineral Oil 30 Ml Udc [place] 09/04/25 23:48 QDAY PRN CONSTIPATION Protocol Multivitamins 1 tab 08/06/25 09:00 08/08/25 08:07 Multivitamins Tablet PO 09/05/25 08:59 1 tab QDAY CHRISTIANO Administration Ondansetron HCl 4 mg 08/05/25 23:49 Ondansetron Inj 2 Mg/Ml Inj 2 Ml IVP 09/04/25 23:48 Q6H PRN NAUSEA OR VOMITING Protocol Pantoprazole Sodium 40 mg 08/06/25 09:00 08/08/25 08:07 Pantoprazole 40 Mg Tablet PO 09/05/25 08:59 40 mg QDAY CHRISTIANO Administration Pharmacy Consult 1 each 08/09/25 09:00 Vancomycin Pharmacy To Dose 1 Each Each IV 09/08/25 08:59 QDAY PRN CONSULT Potassium Chloride 10 meq 08/06/25 09:00 08/08/25 08:11 Potassium Chloride 10% 20 Meq/15 Ml Udc PO 09/05/25 08:59 10 meq BID CHRISTIANO Administration Primidone 200 mg 08/06/25 09:00 08/08/25 08:06 Primidone 50 Mg Tablet PO 08/11/25 08:59 200 mg BID CHRISTIANO Administration Plan Patient is a 70-year-old female with developmental delay, primary hypertension, seizure disorder, hypothyroidism, gastritis and history of normocytic anemia who presents to [facility] emergency department on 08/05/2025 from care facility with chief complaint of shortness of breath, hypoxia, and agitation. #Acute Hypoxic & Hypercapnic Respiratory Failure #Aspiration Pneumonia versus pneumonitis Presented with shortness of breath, hypoxia, and likely aspiration event prior to arrival CXR on admission clear although was taken shortly after event. Original ABG showed hypercapnia. Patient was placed on BiPAP and has been weaned down to nasal cannula. - Plan: Continue supplemental oxygen. Continue IV antibiotics, Vanc and Zosyn. Follow-up culture results when available. Breathing treatments as needed. Incentive spirometer. #?Bacteremia 08/05/25 Blood cxs: Preliminarily show 1 of 2 blood cultures growing GPC MRSA screen positive - Plan: Continue IV vancomycin for now (pharmacy to dose and follow-up trough level). Ordered Vanc trough. Pending Blood Cx x2 08/08. # Dysphagia Chart review revealed history of choking spells years ago but has been symptom- free - Plan: Patient was seen by speech therapy who recommends dysphagia 1 pureedand regular liquids and we will continue to monitor for any aspiration events. #Seizure Disorder -Seizure precaution . - Plan: Continue home primidone #Developmental delay -Continue to provide supportive measures. #Hypothyroidism -Plan: Continue home levothyroxine. TSH within normal limits. #History of deep vein thrombosis History of DVT in 2021 which was provoked secondary to fracture - Plan: Appears patient still takes Eliquis although likely not needed. Will continue DVT prophylaxis while hospitalized. DVT prophylaxis: Lovenox subQ Diet: Dysphagia 1 diet and regular liquids CODE STATUS: DNR Dispo: Admitted to Tele Case was discussed with Attending Dr. Lazo, and Senior Resident Dr. Genny Clancy, DO PGY-1 Attending Provider Attestation/Addendum I have examined the patient, reviewed labs and imaging findings, discussed the case with the resident(s), and reviewed entered orders. I agree with the plan of care as outlined in this note, with these additional summaries/recommendations: Patient seen at bedside. No acute overnight events. Patient is developmentally delayed and no reliable history can be obtained at this time. Continue supplemental oxygen for acute hypoxic and hypercapnic respiratory failure secondary to aspiration pneumonia/pneumonitis. Continue IV antibiotics. Blood cultures preliminarily showing GPC 1 out of 2 and awaiting speciation before determining antibiotic stewardship versus more likely contamination. Patient was seen by speech therapist and tolerating dysphagia diet. Continue home primidone for seizure disorder. Anticipate discharge in the next 24 to 48 hours. Please see residents note for additional details and management. Dr. Clifton MD
[2025-08-09] VITALS (10 sets, daily range): BP systolic 113–136; BP diastolic 62–78; PULSE 62–93; RESP 14–20; TEMP 36.2–36.9; O2SAT 93–136; BMI 25.8; BMI 27.1
[2025-08-09 00:12] LABS: Vancomycin,Trough 12.9 mcg/mL (5.0-10.0)
--- NOTE | 2025-08-09 00:14 | PC.NURSE ---
Called shift leader pharmacy to ask if it was okay to hang vanco at 2200 when vanco trough is 20.6 on august 07, NOC pharmacist suggested to order another vanco trough. Dr. Mehta was made aware, okay to order vanco trough per .
[2025-08-09] MEDS: VANCOMYCIN/NS 1 GM IVPB 200 ML IV ×3 (00:50→13:45)
--- NOTE | 2025-08-09 03:01 | PC.NURSE ---
okay to hang vanco at 6 am per night pharmacist, Pharmacist was made aware that the 2200 dose was given at 0050 am.
[2025-08-09] MEDS: PIPER/TAZO INJ 3.375 GM in SODIUM CHLORIDE 0.9% (POP) 100 ML IV ×3 (05:54→21:48)
[2025-08-09 06:42] LABS: Basophils # (Auto) 0.0 Thou/mm3 (0.0-0.2); Basophils % (Auto) 1 % (0-2.5); Eosinophils # (Auto) 0.4 Thou/mm3 (0.0-0.5); Eosinophils % (Auto) 9 % (0-10); Hematocrit 32.2 % (36.0-46.0); Hemoglobin 10.2 g/dL (12.0-16.0); Immature Granulocytes Auto 0.01 Thou/mm3 (0.00-0.00); Lymphocytes # (Auto) 1.8 Thou/mm3 (1.0-4.8); Lymphocytes % (Auto) 37 % (10-50); Mean Corpuscular HGB Conc 31.7 g/dl (31.0-37.0); Mean Corpuscular Hemoglobin 30.7 pg (25.0-35.0); Mean Corpuscular Volume 97 fL (80-100); Monocytes # (Auto) 0.5 Thou/mm3 (0.0-0.8); Monocytes % (Auto) 11 % (0-12); Neutrophils # (Auto) 2.1 Thou/mm3 (1.8-7.7); Neutrophils % (Auto) 43 % (37-80); Nucleated Red Blood Cell # 0.00 Thou/mm3 (0.00-0.00); Nucleated Red Blood Cell % 0 /100 WBC (0); Platelet Count 99 Thou/mm3 (140-440); RDW Standard Deviation 60.4 fL (36.4-46.3); Red Blood Count 3.32 Miln/mm3 (4.00-5.20); White Blood Count 4.9 Thou/mm3 (3.6-11.0)
[2025-08-09 06:46] LABS: Alanine Aminotransferase < 7 U/L (10-49); Albumin, Serum 3.6 gm/dL (3.4-4.8); Albumin/Globulin Ratio 1.0 (1.2-2.2); Alkaline Phosphatase 104 U/L (46-116); Anion Gap 8 (7-16); Aspartate Amino Transferase 18 U/L (0-34); BUN/Creatinine Ratio 20 Ratio (12-20); Bilirubin,Total 0.2 mg/dL (0.3-1.2); Blood Urea Nitrogen 6 mg/dL (9-23); Calcium 8.7 mg/dL (8.3-10.6); Calcium (Corrected) 9.0 mg/dL (8.5-10.1); Carbon Dioxide 32.9 mMol/L (20.0-31.0); Chloride 104 mMol/L (98-107); Creatinine (Component) 0.3 mg/dL (0.6-1.3); Estimated Creatinine Clearance 149.0 mL/min (>60); Globulin 3.5 gm/dL (2.3-3.5); Glucose 78 mg/dL (74-106); Magnesium 1.8 mg/dL (1.6-2.6); Osmolality,Calculated 285 (275-295); Phosphorous 4.1 mg/dL (2.4-5.1); Potassium 3.6 mMol/L (3.4-5.1); Sodium 145 mMol/L (136-145); Total Protein 7.1 gm/dL (5.7-8.2); eGFR > 60 See Note
--- NOTE | 2025-08-09 09:03 | PD.RESPRO ---
Documentation for date of: 08/09/25 No over night events. Patient is pending sensitivity on initial culture, concern for contamination. Repeat blood culture negative after 24 hours. Plan to discharge within the nexgt 24 hours, pending blood culture. Senior Resident Attestation: I have discussed the case with supervising physician and commercial intern physician involved in the care of patient. I personally saw and examined patient and discussed the assessment and plan with the entire medical team, including attending. I agree with assessment and plan as documented above. Taya Royal MD PGY-2 Internal Medicine Subjective Subjective Interval history: ANISH, VSJewels, patient appears well, sitting upright in bed voicing home. Patient from a SNF, [facility], still has low appetite. 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 Exam Vital Signs Temp Pulse Resp BP Pulse Ox O2 Del Method O2 Flow Rate 97.1 F 74 18 113/62 96 Nasal Cannula 2 08/09/25 08:00 08/09/25 08:00 08/09/25 08:00 08/09/25 08:00 08/09/25 08:00 08/09/25 08:00 08/09/25 08:00 FiO2 35 08/07/25 20:00 Narrative Exam General: No acute distress, well nourished Eye: PERRL, EOMI, normal conjunctiva, no scleral icterus HENT: Normocephalic, atraumatic, normal hearing, pink and moist mucous membranes, no oral lesions in mouth, throat shows no erythema Neck: Supple, non-tender, no JVD, no lymphadenopathy Lungs: Clear to auscultation bilaterally, non-labored respirations, symmetric chest rise, no use of accessory muscles Heart: Normal S1 and S2, no S3 or S4 appreciated. Normal rate and regular rhythm, no murmurs, rubs gallops, or edema. Peripheral pulses intact bilaterally, capillary refill brisk distally Abdomen: Soft, non-tender, non-distended, normal bowel sounds. No guarding or rebound tenderness. Musculoskeletal: Normal range of motion and strength. Skin: Skin is warm, dry, no rashes or lesions. Neurologic: Alert, awake and oriented x3. CN II-XII grossly intact. No focal neuro deficits. No signs of meningeal irritation noted. Psychiatric: Cooperative, appropriate mood and affect Objective Labs 08/10/25 06:41 08/10/25 14:17 Labs: Laboratory Results - last 24 hr 08/08/25 08/09/25 23:29 05:20 WBC 4.9 RBC 3.32 L Hgb 10.2 L Hct 32.2 L MCV 97 MCH 30.7 MCHC 31.7 RDW Std Deviation 60.4 H Plt Count 99 L Neut % (Auto) 43 Lymph % (Auto) 37 [place] % (Auto) 11 Eos % (Auto) 9 Baso % (Auto) 1 Neut # (Auto) 2.1 Lymph # (Auto) 1.8 [place] # (Auto) 0.5 Eos # (Auto) 0.4 Baso # (Auto) 0.0 Immature Gran # (Auto) 0.01 H Absolute Nucleated RBC 0.00 Immature Gran % 0 Nucleated RBC % 0 Sodium 145 Potassium 3.6 Chloride 104 Carbon Dioxide 32.9 H Anion Gap 8 BUN 6 L Creatinine 0.3 L Estim Creat Clear Calc 149.0 eGFR > 60 BUN/Creatinine Ratio 20 Glucose 78 Calculated Osmolality 285 Calcium 8.7 Corrected Calcium 9.0 Phosphorus 4.1 Magnesium 1.8 Total Bilirubin 0.2 L AST 18 ALT < 7 L Alkaline Phosphatase 104 Total Protein 7.1 Albumin 3.6 Globulin 3.5 Albumin/Globulin Ratio 1.0 L Vancomycin Trough 12.9 H ABG Interpretation ABG results: 08/05/25 08/06/25 22:42 09:01 VBG pH 7.29 L 7.40 VBG pCO2 73 H 60 H D VBG pO2 139 H 116 H D VBG Base Excess 7 H 10 H Quality Measures Quality Measures none Advance care planning discussed with:: legal surragate Assessment & Plan Assessment Current Active Medications: Generic Name Dose Route Start Last Admin Trade Name Freq PRN Reason Stop Dose Admin Acetaminophen 650 mg 08/05/25 23:49 Acetaminophen Supp 650 Mg Supp [place] 09/04/25 23:48 Q6HR PRN FEVER > 101.5 Acetaminophen 650 mg 08/05/25 23:49 Acetaminophen 325 Mg Tablet PO 09/04/25 23:48 Q6H PRN PAIN SCALE 1-3 (mild Albuterol/Ipratropium 3 ml 08/06/25 00:05 Albuterol/Ipratropium (Duoneb) Rt Shari 3 Ml Nebu INH 09/05/25 00:04 Q4HR PRN wheezing Ascorbic Acid 500 mg 08/06/25 09:00 08/08/25 08:07 Ascorbic Acid 250 Mg Tablet PO 09/05/25 08:59 500 mg QDAY CHRISTIANO Administration Docusate Sodium 250 mg 08/07/25 09:45 08/08/25 21:58 Docusate Sod Liqd 100 Mg/10 Ml Udc PO 09/06/25 09:44 250 mg BID CHRISTIANO Administration Protocol Enoxaparin Sodium 40 mg 08/06/25 09:00 08/08/25 08:13 Enoxaparin Sod Inj 40 Mg/0.4 Ml Syringe SC 08/20/25 08:59 40 mg QDAY CHRISTIANO Administration Hydroxyzine HCl 50 mg 08/06/25 21:00 08/08/25 21:58 Hydroxyzine Hcl 25 Mg Tablet PO 09/05/25 20:59 50 mg QPM CHRISTIANO Administration Piperacillin Sod/Tazobactam 100 mls @ 25 mls/hr 08/06/25 06:00 08/09/25 05:54 Sod 3.375 gm/ Sodium Chloride IV 08/13/25 05:59 25 mls/hr Q8HR CHRISTIANO Administration Protocol Vancomycin/Sodium Chloride 200 mls @ 120 mls/hr 08/08/25 22:00 08/09/25 06:01 Vancomycin/Ns 1 Gm Ivpb IV 08/15/25 21:59 120 mls/hr Q8HR CHRISTIANO Administration Protocol Magnesium Sulfate/Dextrose 1 gm in 100 mls @ 100 mls/hr 08/09/25 08:29 Magnesium Sulfate Ivpb IV 08/09/25 09:28 X1 ONE Levothyroxine Sodium 300 mcg 08/06/25 09:00 08/08/25 08:07 Levothyroxine Sodium 100 Mcg Tablet PO 09/05/25 08:59 300 mcg QDAY CHRISTIANO Administration Loratadine 10 mg 08/06/25 09:00 08/08/25 08:07 Loratadine 10 Mg Tablet PO 09/05/25 08:59 10 mg QDAY CHRISTIANO Administration Magnesium Hydroxide 30 ml 08/06/25 01:15 08/09/25 02:33 Milk Of Magnesia Susp 30 Ml Udc PO 09/05/25 01:14 Not Given Q72H CHRISTIANO Protocol Mineral Oil 30 ml 08/05/25 23:49 Mineral Oil 30 Ml Udc [place] 09/04/25 23:48 QDAY PRN CONSTIPATION Protocol Multivitamins 1 tab 08/06/25 09:00 08/08/25 08:07 Multivitamins Tablet PO 09/05/25 08:59 1 tab QDAY CHRISTIANO Administration Ondansetron HCl 4 mg 08/05/25 23:49 Ondansetron Inj 2 Mg/Ml Inj 2 Ml IVP 09/04/25 23:48 Q6H PRN NAUSEA OR VOMITING Protocol Pantoprazole Sodium 40 mg 08/06/25 09:00 08/08/25 08:07 Pantoprazole 40 Mg Tablet PO 09/05/25 08:59 40 mg QDAY CHRISTIANO Administration Pharmacy Consult 1 each 08/09/25 09:00 Vancomycin Pharmacy To Dose 1 Each Each IV 09/08/25 08:59 QDAY PRN CONSULT Potassium Chloride 10 meq 08/06/25 09:00 08/08/25 21:58 Potassium Chloride 10% 20 Meq/15 Ml Udc PO 09/05/25 08:59 10 meq BID CHRISTIANO Administration Primidone 200 mg 08/06/25 09:00 08/08/25 22:02 Primidone 50 Mg Tablet PO 08/11/25 08:59 200 mg BID CHRISTIANO Administration Plan Patient is a 70-year-old female with developmental delay, primary hypertension, seizure disorder, hypothyroidism, gastritis and history of normocytic anemia who presents to [facility] emergency department on 08/05/2025 from care facility with chief complaint of shortness of breath, hypoxia, and agitation. #Acute Hypoxic & Hypercapnic Respiratory Failure, resolved #Aspiration Pneumonia versus pneumonitis, resolved Presented with shortness of breath, hypoxia, and likely aspiration event prior to arrival CXR on admission clear although was taken shortly after event. Original ABG showed hypercapnia. Patient was placed on BiPAP and has been weaned down to nasal cannula. 08/09 On baseline home oxygen 2L [place] - Plan: Continue supplemental oxygen. Continue IV antibiotics, Vanc and Zosyn. Follow-up culture results when available. Breathing treatments as needed. Incentive spirometer. #Bacteremia, resolved 08/05/25 Blood cxs: Preliminarily show 1 of 2 blood cultures growing GPC (contamination) MRSA screen positive - Plan: Continue IV vancomycin for now (pharmacy to dose and follow-up trough level). Ordered Vanc trough. Pending Blood Cx x2 08/08. # Dysphagia Chart review revealed history of choking spells years ago but has been symptom-free - Plan: Patient was seen by speech therapy who recommends dysphagia 1 pureedand regular liquids and we will continue to monitor for any aspiration events. #Seizure Disorder -Seizure precaution . - Plan: Continue home primidone #Developmental delay -Continue to provide supportive measures. #Hypothyroidism -Plan: Continue home levothyroxine. TSH within normal limits. #History of deep vein thrombosis History of DVT in 2021 which was provoked secondary to fracture - Plan: Appears patient still takes Eliquis although likely not needed. Will continue DVT prophylaxis while hospitalized. DVT prophylaxis: Lovenox subQ Diet: Dysphagia 1 diet and regular liquids CODE STATUS: DNR Dispo: Admitted to Tele Case was discussed with Attending Dr. Lazo, and Senior Resident Dr. Genny Clancy, DO PGY-1 Attending Provider Attestation/Addendum I have examined the patient, reviewed labs and imaging findings, discussed the case with the resident(s), and reviewed entered orders. I agree with the plan of care as outlined in this note, with these additional summaries/recommendations: Patient seen at bedside. No acute overnight events. Patient is developmentally delayed and no reliable history can be obtained at this time. Continue supplemental oxygen for acute hypoxic and hypercapnic respiratory failure secondary to aspiration pneumonia/pneumonitis. Continue IV antibiotics. Blood cultures preliminarily showing GPC 1 out of 2 and awaiting speciation before determining antibiotic stewardship versus more likely contamination. Patient was seen by speech therapist and tolerating dysphagia diet. Continue home primidone for seizure disorder. Anticipate discharge in the next 24 to 48 hours. Please see residents note for additional details and management. Dr. Clifton MD
[2025-08-09] MEDS: ENOXAPARIN SOD INJ 40 MG/0.4 ML SYRINGE SC (09:04)
[2025-08-09] MEDS: DOCUSATE SOD LIQD 100 MG/10 ML UDC 250 MG PO ×2 (09:05→21:47)
[2025-08-09] MEDS: PRIMIDONE 50 MG TABLET 200 MG PO ×2 (09:05→21:55)
[2025-08-09] MEDS: POTASSIUM CHLORIDE 10% 20 MEQ/15 ML UDC 10 MEQ PO ×2 (09:05→21:55)
[2025-08-09] MEDS: ASCORBIC ACID 250 MG TABLET 500 MG PO (09:06)
[2025-08-09] MEDS: PANTOPRAZOLE 40 MG TABLET PO (09:06)
[2025-08-09] MEDS: LEVOTHYROXINE SODIUM 100 MCG TABLET 300 MCG PO (09:06)
[2025-08-09] MEDS: MULTIVITAMINS TABLET 1 TAB PO (09:07)
--- NOTE | 2025-08-09 13:34 | PC.NURSE ---
PLACED CALL TO PHARMACY, SPOKE TO MCKENZIE ALVAREZ TO ADMINISTER VANCO.
--- NOTE | 2025-08-09 13:49 | PC.SS ---
SS follow up note; Repeat blood cultures pending. Patient will discharge back to [place] when medically cleared.
[2025-08-09 14:46] LABS: Vancomycin,Trough 26.2 mcg/mL (5.0-10.0)
--- NOTE | 2025-08-09 15:05 | PC.NURSE ---
COORDINATED CARE WITH PHARMACY, CLARIFICATION ON VANCO TROUGH, PER ANTONIO PHARMACIST, NOT A TRUE TROUGH AT 1300, WAS NOT ABLE TO CANCEL ORDER. VANCO ORDER TROUGH FOR 2200 08/09/2025.
[2025-08-09 21:41] LABS: Vancomycin,Trough 31.9 mcg/mL (5.0-10.0)
[2025-08-10] VITALS (11 sets, daily range): BP systolic 106–139; BP diastolic 60–81; PULSE 72–89; RESP 16–22; TEMP 36.2–36.7; O2SAT 93–99; BMI 25.8
--- NOTE | 2025-08-10 06:02 | PC.NURSE ---
okay to hold vanco dose per night assistant pharmacist
[2025-08-10] MEDS: PIPER/TAZO INJ 3.375 GM in SODIUM CHLORIDE 0.9% (POP) 100 ML IV ×2 (06:13→13:29)
[2025-08-10 07:05] LABS: Basophils # (Auto) 0.0 Thou/mm3 (0.0-0.2); Basophils % (Auto) 1 % (0-2.5); Eosinophils # (Auto) 0.5 Thou/mm3 (0.0-0.5); Eosinophils % (Auto) 9 % (0-10); Hematocrit 30.1 % (36.0-46.0); Hemoglobin 9.8 g/dL (12.0-16.0); Immature Granulocytes Auto 0.01 Thou/mm3 (0.00-0.00); Lymphocytes # (Auto) 1.6 Thou/mm3 (1.0-4.8); Lymphocytes % (Auto) 26 % (10-50); Mean Corpuscular HGB Conc 32.6 g/dl (31.0-37.0); Mean Corpuscular Hemoglobin 30.8 pg (25.0-35.0); Mean Corpuscular Volume 95 fL (80-100); Monocytes # (Auto) 0.8 Thou/mm3 (0.0-0.8); Monocytes % (Auto) 13 % (0-12); Neutrophils # (Auto) 3.2 Thou/mm3 (1.8-7.7); Neutrophils % (Auto) 52 % (37-80); Nucleated Red Blood Cell # 0.00 Thou/mm3 (0.00-0.00); Nucleated Red Blood Cell % 0 /100 WBC (0); Platelet Count 117 Thou/mm3 (140-440); RDW Standard Deviation 58.5 fL (36.4-46.3); Red Blood Count 3.18 Miln/mm3 (4.00-5.20); White Blood Count 6.2 Thou/mm3 (3.6-11.0)
[2025-08-10 07:26] LABS: Alanine Aminotransferase 10 U/L (10-49); Albumin, Serum 3.5 gm/dL (3.4-4.8); Albumin/Globulin Ratio 1.1 (1.2-2.2); Alkaline Phosphatase 103 U/L (46-116); Anion Gap 9 (7-16); Aspartate Amino Transferase 22 U/L (0-34); BUN/Creatinine Ratio 18 Ratio (12-20); Bilirubin,Total 0.3 mg/dL (0.3-1.2); Blood Urea Nitrogen 7 mg/dL (9-23); Calcium 8.7 mg/dL (8.3-10.6); Calcium (Corrected) 9.1 mg/dL (8.5-10.1); Carbon Dioxide 34.1 mMol/L (20.0-31.0); Chloride 105 mMol/L (98-107); Creatinine (Component) 0.4 mg/dL (0.6-1.3); Estimated Creatinine Clearance 111.8 mL/min (>60); Globulin 3.1 gm/dL (2.3-3.5); Glucose 104 mg/dL (74-106); Magnesium 1.9 mg/dL (1.6-2.6); Osmolality,Calculated 292 (275-295); Phosphorous 4.1 mg/dL (2.4-5.1); Potassium 3.4 mMol/L (3.4-5.1); Sodium 148 mMol/L (136-145); Total Protein 6.6 gm/dL (5.7-8.2); Vancomycin,Random 21.9 mcg/mL; eGFR > 60 See Note
--- NOTE | 2025-08-10 08:48 | PD.RESPRO ---
Documentation for date of: 08/10/25 Exam Vital Signs Temp Pulse Resp BP Pulse Ox O2 Del Method O2 Flow Rate 98 F 83 16 122/79 93 L Nasal Cannula 1 08/10/25 07:13 08/10/25 07:13 08/10/25 07:13 08/10/25 07:13 08/10/25 07:13 08/10/25 07:13 08/10/25 07:13 FiO2 35 08/07/25 20:00 Objective Labs 08/10/25 06:41 08/10/25 06:41 Labs: Laboratory Results - last 24 hr 08/09/25 08/09/25 08/10/25 13:46 20:45 06:41 WBC 6.2 RBC 3.18 L Hgb 9.8 L Hct 30.1 L MCV 95 MCH 30.8 MCHC 32.6 RDW Std Deviation 58.5 H Plt Count 117 L Neut % (Auto) 52 Lymph % (Auto) 26 Collier % (Auto) 13 H Eos % (Auto) 9 Baso % (Auto) 1 Neut # (Auto) 3.2 Lymph # (Auto) 1.6 Collier # (Auto) 0.8 Eos # (Auto) 0.5 Baso # (Auto) 0.0 Immature Gran # (Auto) 0.01 H Absolute Nucleated RBC 0.00 Immature Gran % 0 Nucleated RBC % 0 Sodium 148 H Potassium 3.4 Chloride 105 Carbon Dioxide 34.1 H Anion Gap 9 BUN 7 L Creatinine 0.4 L Estim Creat Clear Calc 111.8 eGFR > 60 BUN/Creatinine Ratio 18 Glucose 104 Calculated Osmolality 292 Calcium 8.7 Corrected Calcium 9.1 Phosphorus 4.1 Magnesium 1.9 Total Bilirubin 0.3 AST 22 ALT 10 Alkaline Phosphatase 103 Total Protein 6.6 Albumin 3.5 Globulin 3.1 Albumin/Globulin Ratio 1.1 L Vancomycin Trough 26.2 H* 31.9 H* Random Vancomycin 21.9 ABG Interpretation ABG results: 08/05/25 08/06/25 22:42 09:01 VBG pH 7.29 L 7.40 VBG pCO2 73 H 60 H D VBG pO2 139 H 116 H D VBG Base Excess 7 H 10 H Quality Measures Quality Measures none Assessment & Plan Assessment Current Active Medications: Generic Name Dose Route Start Last Admin Trade Name Freq PRN Reason Stop Dose Admin Acetaminophen 650 mg 08/05/25 23:49 Acetaminophen Supp 650 Mg Supp MS 09/04/25 23:48 Q6HR PRN FEVER > 101.5 Acetaminophen 650 mg 08/05/25 23:49 Acetaminophen 325 Mg Tablet PO 09/04/25 23:48 Q6H PRN PAIN SCALE 1-3 (mild Albuterol/Ipratropium 3 ml 08/06/25 00:05 Albuterol/Ipratropium (Duoneb) Rt Shari 3 Ml Nebu INH 09/05/25 00:04 Q4HR PRN wheezing Ascorbic Acid 500 mg 08/06/25 09:00 08/09/25 09:06 Ascorbic Acid 250 Mg Tablet PO 09/05/25 08:59 500 mg QDAY CHRISTIANO Administration Docusate Sodium 250 mg 08/07/25 09:45 08/09/25 21:47 Docusate Sod Liqd 100 Mg/10 Ml Udc PO 09/06/25 09:44 250 mg BID CHRISTIANO Administration Protocol Enoxaparin Sodium 40 mg 08/06/25 09:00 08/09/25 09:04 Enoxaparin Sod Inj 40 Mg/0.4 Ml Syringe SC 08/20/25 08:59 40 mg QDAY CHRISTIANO Administration Hydroxyzine HCl 50 mg 08/06/25 21:00 08/09/25 21:47 Hydroxyzine Hcl 25 Mg Tablet PO 09/05/25 20:59 50 mg QPM CHRISTIANO Administration Piperacillin Sod/Tazobactam 100 mls @ 25 mls/hr 08/06/25 06:00 08/10/25 06:13 Sod 3.375 gm/ Sodium Chloride IV 08/13/25 05:59 25 mls/hr Q8HR CHRISTIANO Administration Protocol Vancomycin/Sodium Chloride 750 mg in 150 mls @ 120 mls/hr 08/10/25 22:00 Vancomycin/Ns 750 Mg Ivpb IV 08/17/25 21:59 BID@1000,2200 CHRISTIANO Protocol Levothyroxine Sodium 300 mcg 08/06/25 09:00 08/09/25 09:06 Levothyroxine Sodium 100 Mcg Tablet PO 09/05/25 08:59 300 mcg QDAY CHRISTIANO Administration Loratadine 10 mg 08/06/25 09:00 08/09/25 09:06 Loratadine 10 Mg Tablet PO 09/05/25 08:59 10 mg QDAY CHRISTIANO Administration Magnesium Hydroxide 30 ml 08/06/25 01:15 08/09/25 02:33 Milk Of Magnesia Susp 30 Ml Udc PO 09/05/25 01:14 Not Given Q72H CHRISTIANO Protocol Mineral Oil 30 ml 08/05/25 23:49 Mineral Oil 30 Ml Udc MS 09/04/25 23:48 QDAY PRN CONSTIPATION Protocol Multivitamins 1 tab 08/06/25 09:00 08/09/25 09:07 Multivitamins Tablet PO 09/05/25 08:59 1 tab QDAY CHRISTIANO Administration Ondansetron HCl 4 mg 08/05/25 23:49 Ondansetron Inj 2 Mg/Ml Inj 2 Ml IVP 09/04/25 23:48 Q6H PRN NAUSEA OR VOMITING Protocol Pantoprazole Sodium 40 mg 08/06/25 09:00 08/09/25 09:06 Pantoprazole 40 Mg Tablet PO 09/05/25 08:59 40 mg QDAY CHRISTIANO Administration Pharmacy Consult 1 each 08/09/25 09:00 Vancomycin Pharmacy To Dose 1 Each Each IV 09/08/25 08:59 QDAY PRN CONSULT Potassium Chloride 10 meq 08/06/25 09:00 08/09/25 21:55 Potassium Chloride 10% 20 Meq/15 Ml Udc PO 09/05/25 08:59 10 meq BID CHRISTIANO Administration Primidone 200 mg 08/06/25 09:00 08/09/25 21:55 Primidone 50 Mg Tablet PO 08/11/25 08:59 200 mg BID CHRISTIANO Administration Plan Patient is a 70-year-old female with developmental delay, primary hypertension, seizure disorder, hypothyroidism, gastritis and history of normocytic anemia who presents to [facility] emergency department on 08/05/2025 from care facility with chief complaint of shortness of breath, hypoxia, and agitation. #Acute Hypoxic & Hypercapnic Respiratory Failure, resolved #Aspiration Pneumonia versus pneumonitis, resolved Presented with shortness of breath, hypoxia, and likely aspiration event prior to arrival CXR on admission clear although was taken shortly after event. Original ABG showed hypercapnia. Patient was placed on BiPAP and has been weaned down to nasal cannula. 08/09 On baseline home oxygen 2L NC - Plan: Continue supplemental oxygen. Continue IV antibiotics, Vanc and Zosyn. Follow-up culture results when available. Breathing treatments as needed. Incentive spirometer. #Bacteremia, resolved 08/05/25 Blood cxs: Preliminarily show 1 of 2 blood cultures growing GPC (contamination) MRSA screen positive - Plan: Continue IV vancomycin for now (pharmacy to dose and follow-up trough level). Ordered Vanc trough. Pending Blood Cx x2 08/08. # Dysphagia Chart review revealed history of choking spells years ago but has been symptom-free - Plan: Patient was seen by speech therapy who recommends dysphagia 1 pureedand regular liquids and we will continue to monitor for any aspiration events. #Seizure Disorder -Seizure precaution . - Plan: Continue home primidone #Developmental delay -Continue to provide supportive measures. #Hypothyroidism -Plan: Continue home levothyroxine. TSH within normal limits. #History of deep vein thrombosis History of DVT in 2021 which was provoked secondary to fracture - Plan: Appears patient still takes Eliquis although likely not needed. Will continue DVT prophylaxis while hospitalized. DVT prophylaxis: Lovenox subQ Diet: Dysphagia 1 diet and regular liquids CODE STATUS: DNR Dispo: Admitted to Tele Case was discussed with Attending Dr. Coleman, and Senior Resident Dr. Jacqueline Clancy, DO PGY-1
[2025-08-10] MEDS: DOCUSATE SOD LIQD 100 MG/10 ML UDC 250 MG PO (09:55)
[2025-08-10] MEDS: POTASSIUM CHLORIDE 10% 20 MEQ/15 ML UDC 10 MEQ PO (09:55)
[2025-08-10] MEDS: PRIMIDONE 50 MG TABLET 200 MG PO (09:56)
[2025-08-10] MEDS: MULTIVITAMINS TABLET 1 TAB PO (09:56)
[2025-08-10] MEDS: LEVOTHYROXINE SODIUM 100 MCG TABLET 300 MCG PO (09:56)
[2025-08-10] MEDS: PANTOPRAZOLE 40 MG TABLET PO (09:56)
[2025-08-10] MEDS: ASCORBIC ACID 250 MG TABLET 500 MG PO (09:56)
[2025-08-10] MEDS: ENOXAPARIN SOD INJ 40 MG/0.4 ML SYRINGE SC (09:56)
--- NOTE | 2025-08-10 10:20 | PC.SS ---
SS reached out to Glenna at [facility], updated clinicals sent via [facility]. DC orders pending.
[2025-08-10 14:37] LABS: Sodium 147 mMol/L (136-145)
--- NOTE | 2025-08-10 15:12 | PC.SS ---
Rounding: Rpt NA levels, poss DC to [facility] later.
--- NOTE | 2025-08-10 16:04 | ESDS_ITS ---
<Statement entered by Junito Phillips MD - 08/11/25 05:37> I saw and examined patient personally and supervised PGY 1 resident, Dr. Clancy with formulating a management plan. I agree with the documentation with the exceptions as listed below. Patient was admitted for aspiration pneumonia and treated with IV Zosyn after which her condition improved. She is currently saturating 96 to 98% on 2L O2 via nasal cannula at home dose. All patient's labs are returning to her baseline, patient clinically stable for discharge to [place]. Plan of care discussed with Attending Dr. Jared Phillips MD PGY 2 Disclaimer: This note was dictated by speech recognition. Minor errors in switchboard receptionist may be present due to voice recognition software. Planned Discharge Date 08/10/25 DS: Providers Provider Date of admission: 08/05/25 23:49 Primary care physician: Tony Harding MD Admitting Provider: Beka Macario MD Attending Provider on Admission: Juan Lazo MD Attending Provider on DC: Marianna Clancy MD Discharging Provider: Marianna Clancy MD DS: Diagnosis Problem List Completed Was Problem List Reviewed/Reconciled?: Yes Hospital Course Hospital Course Hospital course: Patient is a 70-year-old female with developmental delay, primary hypertension, seizure disorder, hypothyroidism, gastritis and history of normocytic anemia who presents to [facility] emergency department on 08/05/2025 from [facility] facility with chief complaint of shortness of breath, hypoxia, and agitation. ED Course: The patient presents with difficulty breathing and hypoxia. Duration is tonight few hours prior to admission. Patient reportedly all of a sudden became short of breath and hypoxic. There is unclear history of seizure episode. The patient is a chronic oxygen user at 2 L/min at [facility]. EMS had to bump her up to 4 L up to 5 L prior to arrival at the emergency room. Associated symptoms tachypnea, agitation. There is no report of diarrhea and no report of vomiting. The patient has developmental delay and intellectually challenged. The patient is not verbally responsive. She has a one-to-one sitter in the ER bed 1 since she was started on BiPAP, IPAP 16, EPAP 5 at 15 L/min. Patient lives at [place] patient is DNR?comfort measures. Hospital Course: Patient was admitted for acute hypoxic and hypercapnic respiratory failure secondary to aspiration pneumonia. Patient was managed with antibiotics, vancomycin pharmacy dosed started 08/09 and zosyn 3.375g started 08/06. Medications for chronic conditions, levothyroxine, primidone, hydroxyzine, and duonebs q4 were given during hospital stay. Patient back at baseline O2 being 2L NC. Since patient had a surrogate, surrogate was updated about patient's condition on day of discharge to SNF [place]. Patient was hemodynamically stable and safe for discharge. Instructions: - Continue antibiotics for 2 more days for your aspiration pneumonia - Continue the rest of your home medications as before - Follow up with your primary care physician within 1 week of discharge. If you do not have a primary care physician, please follow up with the [facility] Residents clinic ([phone]) ? If you experience any new, worsening or persistent symptoms either call your primary doctor, or dial 911 or present to the emergency department. #Acute Hypoxic & Hypercapnic Respiratory Failure, resolved #Aspiration Pneumonia versus pneumonitis, resolved #Bacteremia, resolved # Dysphagia #Seizure Disorder #Developmental delay #Hypothyroidism #History of deep vein thrombosis Case was discussed with Attending Dr. Coleman, and Senior Resident Dr. Jacqueline Clancy, DO PGY-1 Status at Discharge Functional status at discharge: independent ambulation Overall status at discharge: patient is back to baseline Time Spent with Patient Time attestation: Total time spent providing and/or coordinating discharge services: Time spent: Greater than 30 minutes Exam Vital Signs Temp Pulse Resp BP Pulse Ox O2 Del Method O2 Flow Rate 98.1 F 76 20 106/60 97 Nasal Cannula 2 08/10/25 11:39 08/10/25 12:00 08/10/25 11:39 08/10/25 11:39 08/10/25 11:39 08/10/25 11:39 08/10/25 11:39 FiO2 35 08/07/25 20:00 Discharge Plan Plan Patient Disposition: Xfer Skilled Nsg Fac (SNF) Disposition Comment: [facility] Patient condition on transfer: Stable Care Plan Goals: - COntinue antibiotics for 2 more days for your aspiration pneumonia - Continue the rest of your home medications as before - Follow up with your primary care physician within 1 week of discharge. If you do not have a primary care physician, please follow up with the [facility] Residents clinic ([phone]) ? If you experience any new, worsening or persistent symptoms either call your [facility] doctor, or dial 911 or present to the emergency department. Prescriptions/Referrals Prescriptions/Med Rec: New amoxicillin-pot clavulanate 875-125 mg tablet 1 tab PO BID 2 Days Qty: 4 0RF Continued primidone 50 mg tablet 200 mg PO BID acetaminophen 325 mg Tablet 650 mg PO Q6H PRN (Reason: Pain) Rx Instructions: for mild pain magnesium hydroxide [Milk of Magnesia] 400 mg/5 mL Suspension 30 ml PO Q72H Rx Instructions: for constipation alendronate 70 mg Tablet 70 mg PO QWEEK Rx Instructions: saturday potassium chloride 10 mEq Tablet Extended Release 10 meq PO BID ascorbic acid (vitamin C) [Vitamin C] 500 mg Tablet 500 mg PO QDAY docusate sodium 250 mg Capsule 250 mg PO BID Rx Instructions: for constipation hydroxyzine HCl 50 mg Tablet 50 mg PO QPM loratadine 10 mg Tablet 10 mg PO QDAY Rx Instructions: for allergies multivitamin with iron-mineral Tablet 1 tab PO QDAY pantoprazole [Protonix] 40 mg Tablet,Delayed Release (Dr/Ec) 40 mg PO QDAY levothyroxine 300 mcg Tablet 300 mcg PO QDAY bisacodyl [Dulcolax (bisacodyl)] 10 mg suppository 10 mg ID QDAY PRN (Reason: constipation) Patient Comments: Insert 1 suppository rectally as needed for Constipation. To be administered the following shift if MOM is ineffective. ferrous sulfate 325 mg (65 mg iron) tablet 325 mg PO BID dextromethorphan-guaifenesin [Modesta-Tussin DM] 10-100 mg/5 mL liquid 10 ml PO Q4H PRN (Reason: cough) hydrocortisone 1 % cream 1 applic topical Q8HR PRN (Reason: rash) Eliquis 5 mg tablet 10 mg PO BID Qty: 28 0RF Held furosemide 40 mg Tablet 40 mg PO QDAY Hold Instructions: Resume on 08/17/25. Hold until you see your PCP Patient Comments: Give 1 tablet by mouth one time a day for HTN. Hold for BP less than 110/60 or HR less than 60 Referrals: Tony Harding MD [Primary Care Provider, Family Practice] Patient/Caregiver Discharge Instructions Discharge Activity: activity as tolerated Education Materials: Preventing Pneumonia Print Language: Setswana Stand Alone Forms: [employer] Award Info., Patient Portal Info Letter Discharge Order Discharge Orders: Discharge (Routine); Ordered 08/10/25 Ordered By: Junito Phillips Quality Discharge Quality Measures VTE prophylaxis Attestestation MD Attestation I have discussed and was present for the essential components of the discharge history, physical examination, diagnosis, and discharge treatment plan with the resident. I agree with the patient's discharge care as documented by the resident and amended herein by me. Dangelo Coleman, DO. Patient should return to the ED for any persistent or worsening symptoms, the patient was stable, afebrile and tolerating p.o. intake for discharge to SNF. Patient will be discharged on an additional 2 days of Augmentin to ensure resolution of pneumonia, possibly aspiration. See resident note above for additional details in regards to hospital admission. Although this document has been carefully reviewed, there may still be some phonetic and other typographical errors. These errors are purely grammatical due to imperfections in the software program and should not be construed in any way to compromise the substance of the patient's medical care during this visit. Time Spent on discharge: 38 minutes
--- NOTE | 2025-08-10 16:46 | PC.SS ---
SS has setup gurney transportation with Juli from [facility] for 7pm to [place]..? Ref# [id number]..? SS has requested [facility].? Per [facility] in store representative, [facility] is not a guaranteed transport company.? Estimated time is 3-4 hours.? SS has sent patient?s facesheet and ambulance form to [facility] using [employer].? SS has spoken to Janey at [facility] who has placed pt on will call list until she has been contacted by [facility]. Bedside nurse, Juli is aware. Asiya from [place] is aware.
--- NOTE | 2025-08-10 19:30 | PC.NURSE ---
report given to Guzman from [place] [facility], estimated time for waste picker at 2100.
--- NOTE | 2025-08-10 20:20 | PC.NURSE ---
patient picked up by ambulance via gurney on 2L nasal cannula, vital signs stable, no complaints of pain, and IV removed. Patient off of floor at 2009.
== END 2025-08-10 20:10 | disposition skilled nursing facility (03) | DRG 177 ==
LOC: SERX 23:45 → SERHOLD 08-06 05:38 → S2NX 08-06 05:38 → S3SX 08-07 23:09
PROVIDERS: Student in an Organized Health Care Education/Training Program; Admitting Provider Internal Medicine; Emergency Provider Emergency Medicine; PCP Family Medicine; Visit Provider Student in an Organized Health Care Education/Training Program
DX: J69.0 Pneumonitis due to inhalation of food and vomit (principal); J96.01 Acute respiratory failure with hypoxia; J96.02 Acute respiratory failure with hypercapnia; J18.9 Pneumonia, unspecified organism; E03.9 Hypothyroidism, unspecified; I10 Essential (primary) hypertension; I25.2 Old myocardial infarction; G40.909 Epilepsy, unspecified, not intractable, without status epilepticus; T68.XXXA Hypothermia, initial encounter; R62.50 Unspecified lack of expected normal physiological development in childhood; R13.10 Dysphagia, unspecified; Z86.16 Personal history of COVID-19; D64.9 Anemia, unspecified; Z51.5 Encounter for palliative care; Z79.890 Hormone replacement therapy; Z66 Do not resuscitate; Z99.81 Dependence on supplemental oxygen; Z86.718 Personal history of other venous thrombosis and embolism
CPT/HCPCS: 36415; 71045; 80048; 80053; 80202; 82803; 83605; 83735; 83880; 84100; 84295; 84443; 84484; 85025; 87040; 87077; 87081; 87186; 87811; 92526; 92610; 93005; 94660; 96361; 96365; 96375; J1650; J1938; J2543; J2919; J3370; J3373; J3475; J7050; J7120; A9270